=== PATIENT | male | born 1970 | race Caucasian/White ===

== ENCOUNTER 2022-04-10 06:03 | Inpatient (IN) | payer MEDICAID ==
[2022-04-10] VITALS (27 sets, daily range): BP systolic 77–186; BP diastolic 41–98
[~2022-04-10] VITALS: Ht 182.9 cm; Wt 118.8 kg
[2022-04-10] MEDS ORDERED: vancomycin/NS 1 GM ADD-VANTAGE 250 ML IV ONE (07:10)
[2022-04-10] MEDS ORDERED: piperacillin/tazo 3.375gm/50ml 50 ML IV ONE (07:10)
[2022-04-10] MEDS ORDERED: normal saline 1000ML IV soln IV ONE (07:10)
[2022-04-10 07:43] LABS: BASOPHILS # (AUTO) 0.1 X10'3 (0-0.2); BASOPHILS % (AUTO) 0.3 % (0-1); EOSINOPHILS % (AUTO) 0 % (0-6); HEMATOCRIT 27.2 % (42.0-52.0); HEMOGLOBIN 8.8 g/dl (14.0-17.9); LYMPHOCYTES % (AUTO) 4.6 % (21-51); MEAN CORPUSCULAR HEMOGLOBIN 27.9 PG (27.0-31.0); MEAN CORPUSCULAR HGB CONC 32.2 g/dL (33.0-36.5); MEAN CORPUSCULAR VOLUME 86.6 FL (78-98); MEAN PLATELET VOLUME 7.4 FL (7.4-10.4); MONOCYTES # (AUTO) 1.7 X10'3 (0-0.9); MONOCYTES % (AUTO) 7.9 % (2-12); NEUTROPHILS # (AUTO) 19.2 X10'3 (1.8-7.7); NEUTROPHILS % (AUTO) 87.2 % (42-75); PLATELET COUNT 566 X10'3 (140-440); RED BLOOD COUNT 3.14 X10'6 (4.70-6.10); RED CELL DISTRIBUTION WIDTH 18.1 % (11.5-14.5)
[2022-04-10 08:13] LABS: ALANINE AMINOTRANSFERASE 7 U/L (12-78); ALBUMIN 1.8 G/DL (3.4-5.0); ALBUMIN/GLOBULIN RATIO 0.3 (1.1-1.5); ALKALINE PHOSPHATASE 93 IU/L (46-116); ANION GAP 10 (8-16); ASPARTATE AMINO TRANSFERASE 13 U/L (10-37); BLOOD UREA NITROGEN 44 MG/DL (7-18); BUN/CREATININE RATIO 11.4 (5.4-32.0); CALCIUM 9.4 MG/DL (8.5-10.1); CHLORIDE 97 MMOL/L (99-107); CREATININE 3.85 MG/DL (0.60-1.10); GLUCOSE 175 MG/DL (70-104); MAGNESIUM 2.2 MG/DL (1.5-2.4); POTASSIUM 5.2 MMOL/L (3.5-5.1); SODIUM 133 MMOL/L (135-145); TOTAL CARBON DIOXIDE 26.1 MMOL/L (24-32); TOTAL PROTEIN 7.7 G/DL (6.4-8.2); eGFR 17 ML/MIN
--- NOTE | 2022-04-10 08:15 | NUR ---
Md informed of pt's continues low bp after 1L NS, second liter ordered. will carry out.
[2022-04-10] MEDS ORDERED: normal saline 1000ml 1,000 ML IV ONE (08:20)
[2022-04-10] MEDS ORDERED: ringers solution, lacted 1,000 ML IV ONE ×3 (08:35→21:55)
--- NOTE | 2022-04-10 08:37 | NUR ---
dr. farmer at bedside.
[2022-04-10] MEDS ORDERED: ringers solution, lacted 1,000 ML IV SCH ×2 (08:45→13:05)
[2022-04-10] MEDS ORDERED: normal saline 1000ml 1,000 ML IV SCH (09:40)
[2022-04-10] MEDS: normal saline 1000ml 1,000 ML IV ONE ×2 (10:01→10:30)
[2022-04-10] MEDS ORDERED: NORepinephrine inj. 32 MG in normal saline 250ml IV soln 218 ML IV SCH (10:25)
[2022-04-10] MEDS ORDERED: albumin (Human) 5% 250ml 250 ML IV ONE ×5 (11:00→12:49)
[2022-04-10] MEDS ORDERED: albumin (human) 25% 100 ML IV solution IV ONE ×2 (11:00)
--- NOTE | 2022-04-10 11:05 | NUR ---
environmental technical officer at bedside. verbal orders for two additional liters of NS for a total of 6L of fluid. also verbal order for 300ml of 25% albumin bolus and 5% albumin cont infusion of 75ml/hr. will carry out.
[2022-04-10] MEDS ORDERED: rocuronium 10mg/ml inj IV ONE ×4 (11:36→13:09)
[2022-04-10] MEDS ORDERED: sevoflurane 250ml liquid IH ONE (11:36)
[2022-04-10] MEDS ORDERED: NORepinephrine 8 MG in NS 250 ML BAG (32 mcg/ml) IV ONE (11:36)
--- NOTE | 2022-04-10 11:36 | NUR ---
telephone report to moose salcido. aware of pending fluid and albumin orders from supercalender operator.
[2022-04-10] MEDS ORDERED: ALBU17AE26 IH (11:37)
[2022-04-10] MEDS ORDERED: CARV12.549 PO (11:37)
[2022-04-10] MEDS ORDERED: DAPA10TA PO (11:37)
[2022-04-10] MEDS ORDERED: ASPI-1397 PO (11:37)
[2022-04-10] MEDS ORDERED: ATOR40TA72 PO (11:37)
[2022-04-10] MEDS ORDERED: LISI10TA27 PO (11:37)
[2022-04-10] MEDS ORDERED: SPIR25TA5 PO (11:37)
[2022-04-10] MEDS ORDERED: FURO40TA4 PO (11:37)
[2022-04-10] MEDS ORDERED: RIVA20TA PO (11:37)
[2022-04-10] MEDS ORDERED: LIDOcaine 1% (10mg/ml) 2ml vial ONE (11:40)
[2022-04-10] MEDS ORDERED: fentaNYL /PF 50mcg/ml 5ml ampule ONE (11:43)
[2022-04-10] MEDS ORDERED: albumin (human) 25% 100ml IV 100 ML IV ONE ×2 (12:35)
[2022-04-10] MEDS ORDERED: FENTANYL CITRATE/D5W/PF 100 ML IV PRN (13:05)
[2022-04-10] MEDS ORDERED: midazolam 100mg in NS 100ml 100 ML IV PRN (13:05)
[2022-04-10] MEDS ORDERED: fentaNYL/PF 50MCG/1 ML 2ML syringe IV PRN ×3 (13:05→13:55)
[2022-04-10] MEDS ORDERED: midazolam 1 mg/ML 2ml injection IV ONE (13:05)
[2022-04-10] MEDS ORDERED: ondansetron/PF 4mg/2ml inj IV PRN (13:05)
[2022-04-10] MEDS ORDERED: MIDAZolam 1mg/ml 10ml vial ONE (13:10)
[2022-04-10] MEDS ORDERED: etomidate 2mg/ml inj. ONE (13:10)
[2022-04-10] MEDS ORDERED: FENTANYL-0.9 % NACL/PF 100 ML IV PRN (13:35)
--- NOTE | 2022-04-10 13:44 | NUR ---
Received from OR via BED, accompanied by Anesthesiologist: DR PULIDO and report given by Anesthesiolgist. ON VENTILATER. TRIPLE LUMEN. ARTLINE. DRESSING MIDLINE ABD WITH COLOSTOMY L LATERAL. RESTRAINTS. F/C. PULSES PRESENT FACIA IS CLOSED YET SKIN IS OPEN, PACKED WITH ABD'S. Addendum: 04/10/22 at [address] RN PATIENT ALSO HAS POWER PIC IN LEFT UPPER ARM AND NG TUBE.
[2022-04-10] MEDS ORDERED: morphine 2 MG/ML inj. syringe IV PRN (13:55)
[2022-04-10] MEDS ORDERED: morphine 4 MG/ML inj SYRINge IV PRN (13:55)
[2022-04-10 14:28] LABS: ABG BASE EXCESS -3.1 mmol/L (-2.0-2.0); ABG HCO3 24.1 mmol/L (22.0-26.0); ABG OXYGEN SATURATION 94.1 % (94-97); ABG PCO2 (T) 54.4 mmHg (35.0-48.0); ABG PO2 (T) 83.4 mmHg (75.0-100.0); FCOHb 0.7 % (0.0-3.9); FMetHb 0.5 % (0.0-1.5); PATIENT TEMPERATURE 36.9; PEEP 5 cm H2O; RESPIRATORY RATE 14 b/min; TIDAL VOLUME 600 mL; TOTAL HEMOGLOBIN 8.6 G/dl (14.0-18.0)
--- NOTE | 2022-04-10 14:44 | NUR ---
PATIENT MEETS DISCHARGE CRITERIA. VSS. PATIENT VENTILATED. BED LOWERED AND LOCKED. REPORT GIVEN TO NURSE.
[2022-04-10] MEDS ORDERED: propofol 1000mg/100ml bottle 100 ML IV ONE (14:56)
--- NOTE | 2022-04-10 15:00 | NUR ---
Patient very hypertensive and tachycardic with heart rate in the 130s-140s and SBP in the 180s-190s. Per Dr. Moffett, give a 150 mcg bolus of Fentanyl and follow that up with a rate increase from 35 mcg/hr to 200 mcg/hr. He also stated he would like the Versed changed to Propofol and to start the rate of the Propofol at 25 mcg/kg/min. Dr. Moffett ordered for a continuous 5% Albumin to be hung at 75ml/hr and for it to not be stopped. He would also like for NS to run at 75 ml/hr. Lastly, he would like an echocardiogram to be ordered and performed. Orders to be followed.
--- NOTE | 2022-04-10 15:00 | NUR ---
Patient report received from REGINA Lay and REGINA Guaman.
[2022-04-10] MEDS: propofol 1000mg/100ml bottle 100 ML IV SCH ×3 (15:11→23:56)
[2022-04-10] MEDS: normal saline 1000ml 1,000 ML IV SCH (15:14)
[2022-04-10] MEDS: albumin (Human) 5% 250ml 250 ML IV SCH ×3 (15:25→20:44)
[2022-04-10] MEDS ORDERED: fentaNYL/NS/PF 2,500 mcg/250mL 250 ML IV PRN (17:45)
[2022-04-10] MEDS: piperacillin/tazo 3.375gm/50ml 50 ML IV SCH (17:46)
--- NOTE | 2022-04-10 19:32 | NUR ---
Sulfonator Operator Tele-Med ICU MD notified of PT's increasing temperature which is now 39.2. Cooling measures in place but not effective. Order received for IV Tylenol. Also made MD aware of PT's HR in low 120's and BP in 90's/40's and need to titrate Levo up. Order received to increase rate Of NS from 75 to 100ml/hr. Will continue to monitor.
[2022-04-10] MEDS: acetaminophen 1,000mg/100ml IV 100 ML IV PRN (19:46)
[2022-04-10] MEDS ORDERED: NORepinephrine 8mg/ 250ml NS 250 ML IV ONE (21:06)
[2022-04-10 21:51] LABS: EOSINOPHILS % (AUTO) 0.1 % (0-6); HEMOGLOBIN 8.3 g/dl (14.0-17.9); LYMPHOCYTES # (AUTO) 0.7 X10'3 (1.1-4.8); LYMPHOCYTES % (AUTO) 4.5 % (21-51); MEAN CORPUSCULAR VOLUME 87.5 FL (78-98)
[2022-04-10 21:52] LABS: BASOPHILS % (AUTO) 0.2 % (0-1); HEMATOCRIT 25.6 % (42.0-52.0); MEAN CORPUSCULAR HEMOGLOBIN 28.5 PG (27.0-31.0); MEAN CORPUSCULAR HGB CONC 32.5 g/dL (33.0-36.5); MEAN PLATELET VOLUME 7.6 FL (7.4-10.4); MONOCYTES # (AUTO) 0.9 X10'3 (0-0.9); MONOCYTES % (AUTO) 6.1 % (2-12); NEUTROPHILS # (AUTO) 13.8 X10'3 (1.8-7.7); NEUTROPHILS % (AUTO) 89.1 % (42-75); PLATELET COUNT 663 X10'3 (140-440); RED BLOOD COUNT 2.93 X10'6 (4.70-6.10); RED CELL DISTRIBUTION WIDTH 18.6 % (11.5-14.5); WHITE BLOOD COUNT 15.5 X10'3 (4.5-11.0)
[2022-04-10] MEDS ORDERED: vasopressin inj. 40 UNIT in dextrose 5%-water 50ml 38 ML IV SCH (21:55)
--- NOTE | 2022-04-10 21:56 | NUR ---
Service Station Manager Tele-Med ICU MD notified of PT's increasing pressor requirement and decreased urine output. Orders received to give 1L bolus of LR and to start Vasopressin if not effective. Order also received to use Flowtrack monitoring. While on the phone update provided in regards to PT's temp after administration of IV Tylenol. Current temp is 38.0. Will continue to monitor.
[2022-04-10 22:01] LABS: ALBUMIN 2.9 G/DL (3.4-5.0); ALBUMIN/GLOBULIN RATIO 0.9 (1.1-1.5); ALKALINE PHOSPHATASE 54 IU/L (46-116); ANION GAP 9 (8-16); ASPARTATE AMINO TRANSFERASE 8 U/L (10-37); BILIRUBIN,TOTAL 0.8 MG/DL (0.1-1.0); BLOOD UREA NITROGEN 47 MG/DL (7-18); BUN/CREATININE RATIO 19.2 (5.4-32.0); CALCIUM 8.3 MG/DL (8.5-10.1); CHLORIDE 102 MMOL/L (99-107); CREATININE 2.45 MG/DL (0.60-1.10); GLUCOSE 167 MG/DL (70-104); MAGNESIUM 2.1 MG/DL (1.5-2.4); POTASSIUM 4.7 MMOL/L (3.5-5.1); SODIUM 134 MMOL/L (135-145); TOTAL CARBON DIOXIDE 23.2 MMOL/L (24-32); TOTAL PROTEIN 6.2 G/DL (6.4-8.2); eGFR 28 ML/MIN
[2022-04-10 22:03] LABS: ALANINE AMINOTRANSFERASE < 6 U/L (12-78)
[2022-04-10] MEDS: NORepinephrine 8mg/ 250ml NS 250 ML IV PRN ×2 (22:11→23:56)
[2022-04-10 22:59] LABS: LARGE PLATELETS FEW; PLATELET ESTIMATE INCREASED
[2022-04-10 23:03] LABS: ANISOCYTOSIS 2+
[2022-04-11] VITALS (29 sets, daily range): BP systolic 16–153; BP diastolic 45–63
--- NOTE | 2022-04-11 | NUR ---
Tele-Med ICU MD was called and given an update on PT condition. BP improved after fluid bolus. Nursing expressed concern about ABD size and order received for ABD pressure monitoring. Will continue to monitor.
[2022-04-11] MEDS: piperacillin/tazo 3.375gm/50ml 50 ML IV SCH ×3 (00:52→17:07)
[2022-04-11] MEDS: albumin (Human) 5% 250ml 250 ML IV SCH ×7 (00:52→21:16)
[2022-04-11] MEDS: normal saline 1000ml 1,000 ML IV SCH ×2 (02:03→12:29)
[2022-04-11 03:40] LABS: BASOPHILS % (AUTO) 0.2 % (0-1); EOSINOPHILS % (AUTO) 0.2 % (0-6); HEMATOCRIT 24.7 % (42.0-52.0); HEMOGLOBIN 8.1 g/dl (14.0-17.9); LYMPHOCYTES # (AUTO) 0.7 X10'3 (1.1-4.8); LYMPHOCYTES % (AUTO) 4.7 % (21-51); MEAN CORPUSCULAR HEMOGLOBIN 28.6 PG (27.0-31.0); MEAN CORPUSCULAR HGB CONC 32.8 g/dL (33.0-36.5); MEAN CORPUSCULAR VOLUME 87.3 FL (78-98); MEAN PLATELET VOLUME 7.4 FL (7.4-10.4); MONOCYTES % (AUTO) 6.8 % (2-12); NEUTROPHILS # (AUTO) 13.4 X10'3 (1.8-7.7); NEUTROPHILS % (AUTO) 88.1 % (42-75); PLATELET COUNT 579 X10'3 (140-440); RED BLOOD COUNT 2.83 X10'6 (4.70-6.10); RED CELL DISTRIBUTION WIDTH 18.2 % (11.5-14.5); WHITE BLOOD COUNT 15.2 X10'3 (4.5-11.0)
[2022-04-11 03:56] LABS: APTT 43 SECONDS (22-32); D-DIMER 7.37 MG/L FEU (0-0.50)
[2022-04-11 04:00] LABS: ALBUMIN 2.7 G/DL (3.4-5.0); ALBUMIN/GLOBULIN RATIO 0.8 (1.1-1.5); ALKALINE PHOSPHATASE 53 IU/L (46-116); ANION GAP 9 (8-16); ASPARTATE AMINO TRANSFERASE 8 U/L (10-37); BILIRUBIN,TOTAL 0.8 MG/DL (0.1-1.0); BLOOD UREA NITROGEN 45 MG/DL (7-18); BUN/CREATININE RATIO 22.2 (5.4-32.0); CALCIUM 8.4 MG/DL (8.5-10.1); CHLORIDE 104 MMOL/L (99-107); CREATININE 2.03 MG/DL (0.60-1.10); GLUCOSE 155 MG/DL (70-104); POTASSIUM 4.9 MMOL/L (3.5-5.1); SODIUM 135 MMOL/L (135-145); TOTAL CARBON DIOXIDE 21.9 MMOL/L (24-32); TRIGLYCERIDES 143 MG/DL (20-135); eGFR 35 ML/MIN
[2022-04-11 04:05] LABS: ALANINE AMINOTRANSFERASE < 6 U/L (12-78)
[2022-04-11 04:09] LABS: ABG BASE EXCESS -3.2 mmol/L (-2.0-2.0); ABG HCO3 21.3 mmol/L (22.0-26.0); ABG OXYGEN SATURATION 98.7 % (94-97); ABG PCO2 (T) 36.4 mmHg (35.0-48.0); FCOHb 0.3 % (0.0-3.9); FMetHb 0.3 % (0.0-1.5); FO2Hb 98.1 % (94-97); PATIENT TEMPERATURE 37.4; PEEP 5 cm H2O; RESPIRATORY RATE 18 b/min; TIDAL VOLUME 600 mL
[2022-04-11] MEDS: NORepinephrine 8mg/ 250ml NS 250 ML IV PRN (04:48)
[2022-04-11] MEDS: propofol 1000mg/100ml bottle 100 ML IV SCH ×2 (04:49→06:48)
--- NOTE | 2022-04-11 06:38 | NUR ---
Problems reprioritized. Patient report given, questions answered & plan of care reviewed with Kranthi TAPIA.
[2022-04-11] MEDS ORDERED: VANCOMYCIN 750MG IV in NS 250 ML IV SCH (08:00)
[2022-04-11] MEDS: pantoprazole 40MG/NS 100ML BAG 100 ML IV SCH (08:57)
--- NOTE | 2022-04-11 11:06 | NUR ---
Initial: Pt intubated admit DX sepsis and perforated sigmoid colon s/p OR for sigmoid resection w/ end descending colostomy per EMR. Pt remains NPO w/ NG in place to suction previously on Propofol though now held during rounds. Pending possible extubation in near future if able per MD. No colostomy output yet noted in EMR. Will monitor for nutrition intervention needs on vent post-op. Rec: 1. IF pt remains intubated post-op consider trickle EN per MD discretion 2. IF pt to remain prolonged NPO vs restrictive diet 7-10 days post-op; consider PN to meet nutrition needs 3. bowel care per MD 4. upon extubation; advance diet as medically indicated to low-residue 5. Colostomy diet ed once pt more appropriate following extubation prior to discharge Addendum: 04/11/22 at [address] Amended: Links added.
[2022-04-11] MEDS: acetaminophen 1,000mg/100ml IV 100 ML IV PRN (11:14)
--- NOTE | 2022-04-11 11:48 | NUR ---
Arrived in room and pt is intubated and sedated. Large abdominal surgical wound intact. Nursing to manage surgical wound. Colostomy to LQ w/ red stoma that measures approx. 38mm through the bag there is serousang drainage noted in the drainage bag. Will return when pt is awake to start ostomy education. Addendum: 04/11/22 at 1149 by Alma Hawkins RN Amended: Links added.
[2022-04-11] MEDS ORDERED: ipratropium/albuterol 3ml nebule NEB PRN (13:55)
[2022-04-11] MEDS ORDERED: naloxone 0.4 mg/ml inj IV PRN (13:55)
[2022-04-11] MEDS ORDERED: mineral oil/petrolatum ophthal oint EACHEYE SCH (14:00)
[2022-04-11] MEDS ORDERED: CADD PCA waste documentation MC SCH (14:05)
[2022-04-11] MEDS: HYDROmorph/NS 0.2 mg/ml PCA 100 ML IV SCH ×4 (14:45→23:00)
[2022-04-11] MEDS: ipratropium/albuterol 3ml nebule NEB SCH ×3 (15:31→23:00)
--- NOTE | 2022-04-11 16:16 | NUR ---
Received from OR via SURGICAL BED , accompanied by Anesthesiologist TESS and report given by Anesthesiolgist. PATIENT WITH 20G PIV IN LEFT HAND RUNNING LR AT 100 LEFT HIP DRESSINGS X2 WITH OP SITES PRESENT AND + DP TO LEFT FOOT. MARKED. PATIENT WITH 10L MASK ON WITH 100% SATURATIONS. SCDS DONNED BILATERALLY. Addendum: 04/11/22 at 1627 by Alireza Mari RN, RN Amended: Links added.
[2022-04-11] MEDS ORDERED: CARV6.253 PO (17:28)
[2022-04-11] MEDS ORDERED: LIDO700A32 TOP (17:28)
[2022-04-11] MEDS ORDERED: OXYC20TA55 PO (17:28)
[2022-04-11] MEDS ORDERED: VANC1PLA9 IV (17:28)
[2022-04-11] MEDS ORDERED: FAMO20TA8 PO (17:28)
[2022-04-11] MEDS ORDERED: OXYC10TA57 PO (17:28)
[2022-04-11] MEDS ORDERED: OXYC-150 PO (17:28)
--- NOTE | 2022-04-11 18:00 | NUR ---
Received report from AM RN. Pts extubated during AM shift. On OPERATIONS CONSULTANT pump. No acute resp distress noted. Safety measures in place. Will continue to monitor.
[2022-04-11] MEDS ORDERED: MYC15CR TP (18:24)
[2022-04-11] MEDS ORDERED: DOCU100C40 PO (18:24)
[2022-04-11] MEDS ORDERED: SIME80TA15 PO (18:24)
[2022-04-11] MEDS ORDERED: FLO0.4C PO (18:24)
[2022-04-11] MEDS ORDERED: SENN1TAB82 PO (18:24)
[2022-04-11] MEDS: vancomycin/NS 1 GM ADD-VANTAGE 250 ML IV SCH (19:58)
[2022-04-11] MEDS ORDERED: HYDROmorphone/PF 0.2 MG/ML SYRINGE IV PRN (20:15)
[2022-04-11] MEDS ORDERED: acetaminophen 1,000mg/100ml IV 100 ML IV ONE (20:15)
--- NOTE | 2022-04-11 21:12 | NUR ---
Pt in pain. Moaning and grunting. Pt states abd pain 08/25. Educated on how to use FACILITIES LOCATOR pump. Order to for breaking through pain control. Breakthrough pain managed. pt resting comfortably.
[2022-04-12] VITALS (38 sets, daily range): BP systolic 121–175; BP diastolic 61–93
[2022-04-12] MEDS: albumin (Human) 5% 250ml 250 ML IV SCH ×10 (00:12→23:33)
[2022-04-12] MEDS: piperacillin/tazo 3.375gm/50ml 50 ML IV SCH ×4 (00:41→23:39)
[2022-04-12] MEDS: HYDROmorph/NS 0.2 mg/ml PCA 100 ML IV SCH ×12 (01:00→23:00)
[2022-04-12] MEDS: normal saline 1000ml 1,000 ML IV SCH (01:14)
[2022-04-12] MEDS: HYDROmorphone inj. 0.5 MG/0.5 ML DISP.SYRIN IV PRN ×5 (03:08→23:42)
[2022-04-12 03:10] LABS: BASOPHILS % (AUTO) 0.2 % (0-1); EOSINOPHILS # (AUTO) 0.1 X10'3 (0-0.9); EOSINOPHILS % (AUTO) 0.5 % (0-6); HEMATOCRIT 22.4 % (42.0-52.0); HEMOGLOBIN 7.2 g/dl (14.0-17.9); LYMPHOCYTES # (AUTO) 0.7 X10'3 (1.1-4.8); LYMPHOCYTES % (AUTO) 4.7 % (21-51); MEAN CORPUSCULAR HEMOGLOBIN 27.9 PG (27.0-31.0); MEAN CORPUSCULAR VOLUME 87.2 FL (78-98); MEAN PLATELET VOLUME 7.5 FL (7.4-10.4); MONOCYTES # (AUTO) 1.3 X10'3 (0-0.9); MONOCYTES % (AUTO) 9.1 % (2-12); NEUTROPHILS # (AUTO) 12.4 X10'3 (1.8-7.7); NEUTROPHILS % (AUTO) 85.5 % (42-75); PLATELET COUNT 389 X10'3 (140-440); RED BLOOD COUNT 2.57 X10'6 (4.70-6.10); RED CELL DISTRIBUTION WIDTH 18.7 % (11.5-14.5); WHITE BLOOD COUNT 14.5 X10'3 (4.5-11.0)
[2022-04-12 03:13] LABS: ALBUMIN 2.9 G/DL (3.4-5.0); ALBUMIN/GLOBULIN RATIO 0.9 (1.1-1.5); ALKALINE PHOSPHATASE 56 IU/L (46-116); ANION GAP 8 (8-16); ASPARTATE AMINO TRANSFERASE 20 U/L (10-37); BILIRUBIN,TOTAL 0.5 MG/DL (0.1-1.0); BLOOD UREA NITROGEN 44 MG/DL (7-18); BUN/CREATININE RATIO 32.6 (5.4-32.0); CALCIUM 8.6 MG/DL (8.5-10.1); CHLORIDE 108 MMOL/L (99-107); CREATININE 1.35 MG/DL (0.60-1.10); GLUCOSE 119 MG/DL (70-104); MAGNESIUM 2.1 MG/DL (1.5-2.4); PHOSPHORUS 3.7 MG/DL (2.3-4.5); POTASSIUM 4.8 MMOL/L (3.5-5.1); SODIUM 139 MMOL/L (135-145); TOTAL CARBON DIOXIDE 23.3 MMOL/L (24-32); TOTAL PROTEIN 6.3 G/DL (6.4-8.2); eGFR 56 ML/MIN
[2022-04-12 03:15] LABS: ALANINE AMINOTRANSFERASE < 6 U/L (12-78)
[2022-04-12 03:59] LABS: ANISOCYTOSIS 2+; PLATELET ESTIMATE NORMAL
[2022-04-12] MEDS ORDERED: furosemide 20 MG/2 ML vial IV ONE (04:40)
[2022-04-12] MEDS ORDERED: LIDOcaine 2% 10ml TOPICAL JELLY (Urojet) MM ONE (05:15)
--- NOTE | 2022-04-12 06:43 | NUR ---
Patient in room CICU 2007. I have received report from Katia and had the opportunity to ask questions and assume patient care.
[2022-04-12] MEDS: vancomycin/NS 1 GM ADD-VANTAGE 250 ML IV SCH ×2 (07:39→19:19)
[2022-04-12] MEDS: pantoprazole 40MG/NS 100ML BAG 100 ML IV SCH (07:39)
[2022-04-12] MEDS: ipratropium/albuterol 3ml nebule NEB SCH ×5 (07:53→22:09)
--- NOTE | 2022-04-12 13:00 | NUR ---
Dr Leiva at bedside. Abdominal Dressing removed. Wound bed 80% pink and 20% yellow. Wound care done with wet to dry 4x4s. Dry 4x4 placed of packed wet 4x4s. An abdominal dressing placed over dressing and taped. Patient pushed KITCHEN BATH DESIGNER pump before starting wound care. Post wound care pain still present. 0.2mg bolus of diluadid given. Wound care needs to be complete BID.
--- NOTE | 2022-04-12 18:14 | NUR ---
Blood pressure 148/90 on Left arm. Mean 106. NOC RN does not feel comfortable with patient getting both medications and would like to clarify it with the MD.
--- NOTE | 2022-04-12 18:17 | NUR ---
Problems reprioritized. Patient report given, questions answered & plan of care reviewed with Katia.
[2022-04-12] MEDS: hydrALAZINE 20mg/ml inj. IV SCH (18:48)
[2022-04-12] MEDS: metoprolol tartrate 1mg/ml inj IV SCH (18:48)
--- NOTE | 2022-04-12 18:48 | NUR ---
Leanne at bed side. Clarified order to give both hydralazine and metropolol. pts heart rate in the 120s. Discrepancy between Art line and manual. Manual 170 SBP. Manual 140SBP
--- NOTE | 2022-04-12 19:14 | NUR ---
Call to Dr Hernandez. Made aware that pt have meaning, grunting and groaning since I arrived on the floor. Pt is active in using VEGETABLE CUTTER without mgmt of pain. Order to give Dilaudid (see MAR) for break through pain. Addendum: 04/12/22 at 192 by Jayne Bardales - Fran RN Arterial line BP still elevated in the 160-170s SBP s/p admin of antiHTN (see MAR). HR 120-130s. Respirations 30s.
--- NOTE | 2022-04-12 19:40 | NUR ---
Call to Dr. Hernandez. Bladder temps in the 38s deg C. Currently 38.4 deg C. Order to give IV acetaminophen (Q6hr)
[2022-04-12] MEDS ORDERED: acetaminophen 1,000mg/100ml IV 100 ML IV PRN (19:45)
[2022-04-12 22:20] LABS: CLARITY,URINE CLOUDY (Clear); COLOR,URINE YELLOW (Yellow); GLUCOSE, URINE NEGATIVE (Neg); KETONES,URINE NEGATIVE (Neg); LEUKOCYTE ESTERASE ,URINE NEGATIVE (Neg); NITRITES, URINE NEGATIVE (Neg); OCCULT BLOOD,URINE SMALL (Neg); PH,URINE 5.5 (4.8-8.0); PROTEIN,URINE TRACE mg/dl (Neg); UROBILINOGEN,URINE 0.2 E.U/dL (0.2-1.0)
[2022-04-12 23:00] LABS: BACTERIA,URINE NONE SEEN /HPF (Neg); MUCUS STRANDS NONE SEEN /LPF (Neg); RBC,URINE 0-2 /HPF (0-2); SQUAMOUS EPITHELIAL CELL,UR NONE SEEN /LPF (FEW); UA COLLECTION TYPE NON-SPECIFIED; URIC ACID CRYSTALS 3+ /HPF (NEGATIVE); WBC,URINE 0-4 /HPF (0-4)
[2022-04-13] VITALS (39 sets, daily range): BP systolic 114–175; BP diastolic 65–101
--- NOTE | 2022-04-13 00:20 | NUR ---
Call to Dr. Hernandez expressed concern about Pts HR being in the 110-120s and wanted to clarify midnight dose of hydralazine. Stated pt HR elevated near to 130s with earlier dose of hydralazine without resolve of hypertension. Hypertension resolved once pain was managed. Pain managed as evidence by pt moaning, groaning and grunting less. Pt able to hold small conversation vs complete withdraw within. Respirations near normal limits (see MAR for vital sign spread). Asked pt to rate his pain on a scale of 0-10, pt states, Im feeling better. Pt able to rest. Art line vs manual cuff within 20mmHg difference at this time. Okay to hold hydralazine. Proceed with admin of metoprolol per order.
[2022-04-13] MEDS: HYDROmorph/NS 0.2 mg/ml PCA 100 ML IV SCH ×12 (01:00→23:00)
[2022-04-13] MEDS: metoprolol tartrate 1mg/ml inj IV SCH ×2 (02:17→07:41)
[2022-04-13] MEDS: HYDROmorphone inj. 0.5 MG/0.5 ML DISP.SYRIN IV PRN ×3 (02:27→05:27)
[2022-04-13] MEDS: albumin (Human) 5% 250ml 250 ML IV SCH ×8 (02:46→22:40)
[2022-04-13 03:17] LABS: BASOPHILS % (AUTO) 0.3 % (0-1); EOSINOPHILS # (AUTO) 0.2 X10'3 (0-0.9); LYMPHOCYTES # (AUTO) 0.7 X10'3 (1.1-4.8); LYMPHOCYTES % (AUTO) 4.6 % (21-51); MEAN CORPUSCULAR HEMOGLOBIN 27.5 PG (27.0-31.0); MEAN CORPUSCULAR HGB CONC 31.8 g/dL (33.0-36.5); MEAN CORPUSCULAR VOLUME 86.6 FL (78-98); MEAN PLATELET VOLUME 7.7 FL (7.4-10.4); MONOCYTES # (AUTO) 1.8 X10'3 (0-0.9); MONOCYTES % (AUTO) 11.3 % (2-12); NEUTROPHILS # (AUTO) 13.5 X10'3 (1.8-7.7); NEUTROPHILS % (AUTO) 82.8 % (42-75); PLATELET COUNT 418 X10'3 (140-440); RED BLOOD COUNT 2.51 X10'6 (4.70-6.10); WHITE BLOOD COUNT 16.3 X10'3 (4.5-11.0)
[2022-04-13 03:24] LABS: HEMOGLOBIN 6.9 g/dl (14.0-17.9)
[2022-04-13 03:25] LABS: HEMATOCRIT 21.8 % (42.0-52.0)
[2022-04-13 03:28] LABS: ALANINE AMINOTRANSFERASE 8 U/L (12-78); ALBUMIN/GLOBULIN RATIO 0.9 (1.1-1.5); ALKALINE PHOSPHATASE 85 IU/L (46-116); ANION GAP 7 (8-16); ASPARTATE AMINO TRANSFERASE 20 U/L (10-37); BILIRUBIN,TOTAL 0.6 MG/DL (0.1-1.0); BLOOD UREA NITROGEN 38 MG/DL (7-18); BUN/CREATININE RATIO 34.9 (5.4-32.0); CALCIUM 8.5 MG/DL (8.5-10.1); CHLORIDE 112 MMOL/L (99-107); CREATININE 1.09 MG/DL (0.60-1.10); GLUCOSE 97 MG/DL (70-104); MAGNESIUM 1.9 MG/DL (1.5-2.4); PHOSPHORUS 3.3 MG/DL (2.3-4.5); POTASSIUM 4.1 MMOL/L (3.5-5.1); SODIUM 144 MMOL/L (135-145); TOTAL CARBON DIOXIDE 25.5 MMOL/L (24-32); TOTAL PROTEIN 6.4 G/DL (6.4-8.2); eGFR 72 ML/MIN
[2022-04-13] MEDS: hydrALAZINE 20mg/ml inj. IV SCH ×6 (04:07→19:45)
[2022-04-13 04:24] LABS: PLATELET ESTIMATE NORMAL
[2022-04-13 04:25] LABS: ANISOCYTOSIS 2+
[2022-04-13] MEDS: normal saline 1000ml 1,000 ML IV SCH ×2 (04:29→22:41)
--- NOTE | 2022-04-13 04:30 | NUR ---
Morning rounding with Dr Avitia Critical H/H reported. Order to transfuse 1 unit of PRBCs.
[2022-04-13] MEDS ORDERED: VANCOMYCIN LEVEL IV ONE (07:30)
[2022-04-13] MEDS: pantoprazole 40MG/NS 100ML BAG 100 ML IV SCH (07:42)
[2022-04-13] MEDS: ipratropium/albuterol 3ml nebule NEB SCH ×5 (08:07→22:08)
[2022-04-13] MEDS: vancomycin/NS 1 GM ADD-VANTAGE 250 ML IV SCH ×2 (08:21→19:45)
[2022-04-13] MEDS ORDERED: HYDROmorphone 1 mg/ml syringe IM ONE (09:25)
--- NOTE | 2022-04-13 09:27 | NUR ---
Blood transfusion complete. RN called Fabian Anderson FREIGHT BROKER re. pt's uncontrolled HTN and pain. Orders received.
[2022-04-13] MEDS: labetalol 20mg/4ml (5mg/ml) syringe IV SCH ×4 (09:33→19:45)
[2022-04-13] MEDS: piperacillin/tazo 3.375gm/50ml 50 ML IV SCH ×2 (09:33→15:36)
[2022-04-13] MEDS ORDERED: HYDROmorphone 1 mg/ml syringe IV ONE (09:35)
--- NOTE | 2022-04-13 12:24 | NUR ---
Dr. Leiva in to see pt. Aware of formed stool in colostomy but no gas.
--- NOTE | 2022-04-13 14:35 | NUR ---
Colostomy bag changed due to large amount of formed stool present. Gas present in colostomy as well.
--- NOTE | 2022-04-13 18:03 | NUR ---
Problems reprioritized. Patient report given, questions answered & plan of care reviewed with NOC RN Jacy.
--- NOTE | 2022-04-13 18:32 | NUR ---
Patient in room CICU 2007. I have received report from Ora TAPIA and had the opportunity to ask questions and assume patient care.
--- NOTE | 2022-04-13 22:25 | NUR ---
Dr Hernandez Called and notified of low urine output for my, orders given to give 20mg of lasix iv
[2022-04-13] MEDS ORDERED: furosemide 20 MG/2 ML vial IV ONE (22:30)
[2022-04-13] MEDS ORDERED: LIDOcaine 2% 10ml TOPICAL JELLY (Urojet) MM ONE (23:10)
--- NOTE | 2022-04-13 23:57 | NUR ---
Patients blunt occluded and was not able to flush, Dr jesus called and notified received orders to replace blunt. patient tolerated well
[2022-04-14] VITALS (18 sets, daily range): BP systolic 148–175; BP diastolic 70–108
[2022-04-14] MEDS: HYDROmorph/NS 0.2 mg/ml PCA 100 ML IV SCH ×12 (01:00→23:00)
[2022-04-14] MEDS: labetalol 20mg/4ml (5mg/ml) syringe IV SCH ×4 (01:10→12:29)
[2022-04-14] MEDS: piperacillin/tazo 3.375gm/50ml 50 ML IV SCH ×3 (01:10→16:22)
[2022-04-14] MEDS: hydrALAZINE 20mg/ml inj. IV SCH ×6 (01:11→20:21)
[2022-04-14] MEDS: albumin (Human) 5% 250ml 250 ML IV SCH (02:06)
[2022-04-14 03:02] LABS: BASOPHILS % (AUTO) 0.2 % (0-1); EOSINOPHILS # (AUTO) 0.2 X10'3 (0-0.9); EOSINOPHILS % (AUTO) 1.5 % (0-6); HEMATOCRIT 23.3 % (42.0-52.0); HEMOGLOBIN 7.6 g/dl (14.0-17.9); LYMPHOCYTES # (AUTO) 0.7 X10'3 (1.1-4.8); LYMPHOCYTES % (AUTO) 5.1 % (21-51); MEAN CORPUSCULAR HEMOGLOBIN 28.1 PG (27.0-31.0); MEAN CORPUSCULAR HGB CONC 32.8 g/dL (33.0-36.5); MEAN CORPUSCULAR VOLUME 85.7 FL (78-98); MEAN PLATELET VOLUME 7.7 FL (7.4-10.4); MONOCYTES # (AUTO) 1.9 X10'3 (0-0.9); MONOCYTES % (AUTO) 13.2 % (2-12); NEUTROPHILS # (AUTO) 11.2 X10'3 (1.8-7.7); PLATELET COUNT 463 X10'3 (140-440); RED BLOOD COUNT 2.71 X10'6 (4.70-6.10); RED CELL DISTRIBUTION WIDTH 18.8 % (11.5-14.5)
[2022-04-14 03:19] LABS: ALANINE AMINOTRANSFERASE 8 U/L (12-78); ALBUMIN 3.2 G/DL (3.4-5.0); ALBUMIN/GLOBULIN RATIO 0.9 (1.1-1.5); ALKALINE PHOSPHATASE 61 IU/L (46-116); ANION GAP 10 (8-16); ASPARTATE AMINO TRANSFERASE 19 U/L (10-37); BILIRUBIN,TOTAL 0.9 MG/DL (0.1-1.0); BLOOD UREA NITROGEN 31 MG/DL (7-18); BUN/CREATININE RATIO 35.2 (5.4-32.0); CALCIUM 8.8 MG/DL (8.5-10.1); CHLORIDE 112 MMOL/L (99-107); CREATININE 0.88 MG/DL (0.60-1.10); GLUCOSE 107 MG/DL (70-104); MAGNESIUM 1.8 MG/DL (1.5-2.4); PHOSPHORUS 3.2 MG/DL (2.3-4.5); POTASSIUM 3.7 MMOL/L (3.5-5.1); SODIUM 145 MMOL/L (135-145); TOTAL CARBON DIOXIDE 22.9 MMOL/L (24-32); TOTAL PROTEIN 6.6 G/DL (6.4-8.2); eGFR > 90 ML/MIN
[2022-04-14 04:45] LABS: PLATELET ESTIMATE INCREASED
[2022-04-14 04:47] LABS: ANISOCYTOSIS 2+
--- NOTE | 2022-04-14 04:59 | NUR ---
Dr Thornton rounding on patient, patient condition reviewed and orders received
[2022-04-14] MEDS: ringers solution, lacted 1,000 ML IV SCH ×4 (05:10→16:10)
--- NOTE | 2022-04-14 06:25 | NUR ---
Problems reprioritized. Patient report given to Ora TAPIA, questions answered & plan of care reviewed with .
[2022-04-14] MEDS: ipratropium/albuterol 3ml nebule NEB SCH ×5 (07:36→22:24)
[2022-04-14] MEDS: pantoprazole 40MG/NS 100ML BAG 100 ML IV SCH (08:03)
[2022-04-14] MEDS: vancomycin/NS 1 GM ADD-VANTAGE 250 ML IV SCH ×2 (08:11→20:15)
[2022-04-14] MEDS: cloNIDine 0.1 MG/24 HOUR patch (7 day patch) TD SCH (10:49)
--- NOTE | 2022-04-14 11:03 | NUR ---
Dr. Steven notified of HTN. New order for Clonidine patch received. ART line leaking. Dc'd.
--- NOTE | 2022-04-14 11:10 | NUR ---
Reassessment: Pt extubated post-op remains NPO now stooling w/ gas from colostomy per RN at rounds. R NG remains in place -400ml past two consecutive days per EMR. ELIZABETH d/w RN regarding diet advancement if MD agreeable; pending surgeon rounds today per RN. Will monitor for PO diet advancement/tolerance and further nutrition intervention needs. Rec: 1. advance diet as medically indicated to low-residue 2. bowel care per MD 3. daily wts 4. Colostomy diet ed once pt more appropriate post-op prior to discharge Addendum: 04/14/22 at [address] Amended: Links added.
[2022-04-14] MEDS: metoprolol tartrate 50mg tablet PO SCH ×2 (14:34→20:21)
--- NOTE | 2022-04-14 15:13 | NUR ---
Pt. transferred to 4007 via bed in stable condition with belongings, chart and med after giving phone report to RN. Pt. transferred to ortho bed from ICu bed using 4 staff and a slideboard.
--- NOTE | 2022-04-14 15:52 | NUR ---
Patient in room ORTHO 4007. I have received report from cheo virk and had the opportunity to ask questions and assume patient care.
--- NOTE | 2022-04-14 18:33 | NUR ---
Problems reprioritized. Patient report given, questions answered & plan of care reviewed with harika virk.
[2022-04-14] MEDS ORDERED: metoprolol tartrate 50mg tablet PO SCH (20:00)
[2022-04-15] MEDS: piperacillin/tazo 3.375gm/50ml 50 ML IV SCH ×3 (00:02→16:31)
[2022-04-15] MEDS: hydrALAZINE 20mg/ml inj. IV SCH ×6 (00:02→19:17)
[2022-04-15] MEDS: HYDROmorph/NS 0.2 mg/ml PCA 100 ML IV SCH ×4 (01:00→07:00)
[2022-04-15 06:00] VITALS: BP 147/107
[2022-04-15 06:14] LABS: BASOPHILS % (AUTO) 0.4 % (0-1); EOSINOPHILS # (AUTO) 0.2 X10'3 (0-0.9); EOSINOPHILS % (AUTO) 1.8 % (0-6); HEMATOCRIT 26.3 % (42.0-52.0); HEMOGLOBIN 8.6 g/dl (14.0-17.9); LYMPHOCYTES # (AUTO) 1.1 X10'3 (1.1-4.8); LYMPHOCYTES % (AUTO) 8.8 % (21-51); MEAN CORPUSCULAR HGB CONC 32.8 g/dL (33.0-36.5); MEAN CORPUSCULAR VOLUME 85.4 FL (78-98); MEAN PLATELET VOLUME 7.8 FL (7.4-10.4); MONOCYTES # (AUTO) 2.2 X10'3 (0-0.9); MONOCYTES % (AUTO) 18.2 % (2-12); NEUTROPHILS # (AUTO) 8.6 X10'3 (1.8-7.7); NEUTROPHILS % (AUTO) 70.8 % (42-75); PLATELET COUNT 529 X10'3 (140-440); RED BLOOD COUNT 3.08 X10'6 (4.70-6.10); RED CELL DISTRIBUTION WIDTH 19.2 % (11.5-14.5); WHITE BLOOD COUNT 12.1 X10'3 (4.5-11.0)
[2022-04-15 06:33] LABS: ALANINE AMINOTRANSFERASE 10 U/L (12-78); ALBUMIN 2.8 G/DL (3.4-5.0); ALBUMIN/GLOBULIN RATIO 0.7 (1.1-1.5); ALKALINE PHOSPHATASE 67 IU/L (46-116); ANION GAP 9 (8-16); ASPARTATE AMINO TRANSFERASE 22 U/L (10-37); BILIRUBIN,TOTAL 0.7 MG/DL (0.1-1.0); BLOOD UREA NITROGEN 26 MG/DL (7-18); BUN/CREATININE RATIO 29.2 (5.4-32.0); CALCIUM 8.6 MG/DL (8.5-10.1); CHLORIDE 112 MMOL/L (99-107); CREATININE 0.89 MG/DL (0.60-1.10); GLUCOSE 117 MG/DL (70-104); MAGNESIUM 1.7 MG/DL (1.5-2.4); PHOSPHORUS 2.7 MG/DL (2.3-4.5); POTASSIUM 3.5 MMOL/L (3.5-5.1); SODIUM 145 MMOL/L (135-145); TOTAL CARBON DIOXIDE 23.6 MMOL/L (24-32); TOTAL PROTEIN 6.7 G/DL (6.4-8.2); eGFR 90 ML/MIN
--- NOTE | 2022-04-15 06:45 | NUR ---
Patient in room ORTHO 4007. I have received report from REGINA Domínguez and had the opportunity to ask questions and assume patient care.
--- NOTE | 2022-04-15 06:46 | NUR ---
Problems reprioritized. Patient report given, questions answered & plan of care reviewed with moose Angel.
[2022-04-15] MEDS: ipratropium/albuterol 3ml nebule NEB SCH ×5 (07:44→23:00)
[2022-04-15] MEDS: pantoprazole 40MG/NS 100ML BAG 100 ML IV SCH (07:58)
[2022-04-15 08:21] LABS: ANISOCYTOSIS 2+; PLATELET ESTIMATE INCREASED; TOTAL CELLS COUNTED 100
[2022-04-15] MEDS ORDERED: HYDROcodone/acetaminophen 5mg/325mg tablet PO PRN (08:30)
[2022-04-15] MEDS: metoprolol tartrate 50mg tablet PO SCH ×2 (08:39→19:15)
[2022-04-15] MEDS: vancomycin/NS 1 GM ADD-VANTAGE 250 ML IV SCH ×2 (08:39→19:13)
[2022-04-15 10:00] VITALS: BP 154/96
[2022-04-15] MEDS: HYDROcodone/acetaminophen 5mg/325mg tablet PO PRN ×3 (10:31→21:44)
[2022-04-15] MEDS: HYDROmorphone inj. 0.5 MG/0.5 ML DISP.SYRIN IV PRN ×2 (13:19→19:12)
[2022-04-15 18:00] VITALS: BP 160/89
--- NOTE | 2022-04-15 18:37 | NUR ---
Patient in room ORTHO 4007. I have received report from REGINA Angel and had the opportunity to ask questions and assume patient care.
--- NOTE | 2022-04-15 18:48 | NUR ---
Problems reprioritized. Patient report given, questions answered & plan of care reviewed with REGINA Farris.
[2022-04-15] MEDS: enoxaparin 40mg/0.4ml syringe SUBCUT SCH (19:16)
[2022-04-15 22:00] VITALS: BP 161/91
[2022-04-15 23:30] VITALS: BP 151/78
[2022-04-16] MEDS: piperacillin/tazo 3.375gm/50ml 50 ML IV SCH ×4 (00:07→23:58)
[2022-04-16] MEDS: hydrALAZINE 20mg/ml inj. IV SCH ×3 (00:07→08:09)
[2022-04-16] MEDS: HYDROmorphone inj. 0.5 MG/0.5 ML DISP.SYRIN IV PRN (00:14)
[2022-04-16 02:00] VITALS: BP 139/89
[2022-04-16] MEDS: HYDROcodone/acetaminophen 5mg/325mg tablet PO PRN ×2 (02:52→08:08)
[2022-04-16 06:00] VITALS: BP 143/100
--- NOTE | 2022-04-16 06:31 | NUR ---
Problems reprioritized. Patient report given, questions answered & plan of care reviewed with REGINA Angel.
--- NOTE | 2022-04-16 06:39 | NUR ---
Patient in room ORTHO 4007. I have received report from REGINA Farris and had the opportunity to ask questions and assume patient care.
[2022-04-16] MEDS: ipratropium/albuterol 3ml nebule NEB SCH ×5 (07:31→23:30)
--- NOTE | 2022-04-16 07:44 | NUR ---
Malnutrition consult: Pt has been NPO/Clears for 6 days now s/p ex lap and colostomy, not meeting needs on clear liquid diet. Pt also documented w/ BLE 2+ scrotal 2+ edema and mild muscle weakness. Pt meets minimum criteria for malnutrition, MD notified. Recommend advancing to Low Fiber diet as tolerated per MD discretion. Noted w/ 150ml ostomy output 04/15 and NGT has been removed. Will continue to monitor. Addendum: 04/16/22 at [address] Amended: Links added.
[2022-04-16] MEDS: vancomycin/NS 1 GM ADD-VANTAGE 250 ML IV SCH (08:08)
[2022-04-16] MEDS: pantoprazole 40MG/NS 100ML BAG 100 ML IV SCH (08:08)
[2022-04-16] MEDS: metoprolol tartrate 50mg tablet PO SCH ×2 (08:09→19:23)
[2022-04-16 10:00] VITALS: BP 147/89
[2022-04-16] MEDS: HYDROcodone/acetaminophen 10/325mg tab PO PRN ×5 (11:52→23:32)
--- NOTE | 2022-04-16 13:59 | NUR ---
Ostomy pouch in place w/ thick liquid stool noted. Provided pt with written ostomy education as well as Ostomy To Go kit list. Pt noted to be hesitant to talk about ostomy as well as look at pouch. He was able to return demonstration on how to open and close tail of pouch and listened/watched demo on cleaning after emptying. Ostomy pouch removed and pt noted to become lightheaded and sweaty. Put foot of bed up. He was not able to look at stoma today and was reassured that [facility] nurse would return to do more education with him. Stoma is red moist slightly edematous, os centered, no mucocutaneous separation noted and peristomal skin is intact. Stoma measures 44 mm. Placed Arabella # [id number] open to 51mm. Pt tolerated well. [facility] nurse to return to see pt in afternoon as well as in am to continue education. He states that he will be going to rehab and may have someone at home who can learn to change pouch for him. He was encouraged to watch You Tube videos on ostomy changes. Addendum: 04/16/22 at 1403 by Alma Hawkins RN Amended: Links added.
[2022-04-16 18:00] VITALS: BP 163/73
[2022-04-16] MEDS: ringers solution, lacted 1,000 ML IV SCH (18:27)
--- NOTE | 2022-04-16 18:48 | NUR ---
Problems reprioritized. Patient report given, questions answered & plan of care reviewed
[2022-04-16] MEDS: enoxaparin 40mg/0.4ml syringe SUBCUT SCH (19:24)
[2022-04-16 22:00] VITALS: BP 169/96
[2022-04-17] MEDS: HYDROcodone/acetaminophen 10/325mg tab PO PRN ×5 (03:56→21:45)
--- NOTE | 2022-04-17 04:36 | NUR ---
Problems reprioritized. Patient report given, questions answered & plan of care reviewed Jeanne TAPIA Addendum: 04/17/22 at 0450 by Jane Constantino LVN Wrong date and time. For 04/16/2022 at 1800
--- NOTE | 2022-04-17 06:34 | NUR ---
Patient in room ORTHO 4007. I have received report from Jane TAPIA and had the opportunity to ask questions and assume patient care.
[2022-04-17] MEDS: metoprolol tartrate 50mg tablet PO SCH ×2 (07:34→19:17)
[2022-04-17] MEDS: pantoprazole 40MG/NS 100ML BAG 100 ML IV SCH (07:35)
[2022-04-17] MEDS: ipratropium/albuterol 3ml nebule NEB SCH ×5 (08:16→23:52)
[2022-04-17] MEDS: piperacillin/tazo 3.375gm/50ml 50 ML IV SCH ×2 (09:56→17:27)
[2022-04-17 10:15] VITALS: BP 129/85
--- NOTE | 2022-04-17 13:07 | NUR ---
patient up in chair with PT colostomy working today soft brown stool. Dressing changed to abdomen.
--- NOTE | 2022-04-17 14:25 | NUR ---
Charge Nurse stated pt's transfer was cancelled per insurance company. Pt was on [facility] gurney, and was transferred back into his bed by ambulance crew. Pt drea well.
--- NOTE | 2022-04-17 17:33 | NUR ---
medicated x3 for pain with good result see emar. patient up in chair working with PT. Nursing staff able to transfer patient back to bed poncho moncada and two assist. dressing to mid abdomen changed , colostomy moved x1 today patient stable at time of report.
[2022-04-17 18:00] VITALS: BP_SYST 136; BP_SYST 155; BP_DIAS 100; BP_DIAS 98
--- NOTE | 2022-04-17 18:39 | NUR ---
Problems reprioritized. Patient report given, questions answered & plan of care reviewed with Jane TAPIA.
[2022-04-17] MEDS: enoxaparin 40mg/0.4ml syringe SUBCUT SCH (19:15)
[2022-04-17 22:00] VITALS: BP 141/84
--- NOTE | 2022-04-17 23:25 | NUR ---
Reviewed patient charting and concur with assessment of patient. Abd is a little distended in appearance.
[2022-04-18] MEDS: HYDROcodone/acetaminophen 10/325mg tab PO PRN ×5 (02:14→19:25)
[2022-04-18 06:00] VITALS: BP 146/86
[2022-04-18 06:17] LABS: BASOPHILS % (AUTO) 0.2 % (0-1); EOSINOPHILS # (AUTO) 0.2 X10'3 (0-0.9); EOSINOPHILS % (AUTO) 1.1 % (0-6); HEMATOCRIT 27.5 % (42.0-52.0); HEMOGLOBIN 8.9 g/dl (14.0-17.9); LYMPHOCYTES # (AUTO) 1.1 X10'3 (1.1-4.8); LYMPHOCYTES % (AUTO) 6.9 % (21-51); MEAN CORPUSCULAR HEMOGLOBIN 27.4 PG (27.0-31.0); MEAN CORPUSCULAR HGB CONC 32.4 g/dL (33.0-36.5); MEAN CORPUSCULAR VOLUME 84.5 FL (78-98); MEAN PLATELET VOLUME 7.5 FL (7.4-10.4); MONOCYTES # (AUTO) 1.6 X10'3 (0-0.9); MONOCYTES % (AUTO) 9.3 % (2-12); NEUTROPHILS # (AUTO) 13.8 X10'3 (1.8-7.7); NEUTROPHILS % (AUTO) 82.5 % (42-75); PLATELET COUNT 464 X10'3 (140-440); RED BLOOD COUNT 3.25 X10'6 (4.70-6.10); RED CELL DISTRIBUTION WIDTH 19.3 % (11.5-14.5); WHITE BLOOD COUNT 16.7 X10'3 (4.5-11.0)
[2022-04-18 06:29] LABS: ALANINE AMINOTRANSFERASE 13 U/L (12-78); ALBUMIN 2.2 G/DL (3.4-5.0); ALBUMIN/GLOBULIN RATIO 0.5 (1.1-1.5); ALKALINE PHOSPHATASE 79 IU/L (46-116); ANION GAP 4 (8-16); ASPARTATE AMINO TRANSFERASE 23 U/L (10-37); BILIRUBIN,TOTAL 0.6 MG/DL (0.1-1.0); BLOOD UREA NITROGEN 17 MG/DL (7-18); CALCIUM 8.1 MG/DL (8.5-10.1); CHLORIDE 104 MMOL/L (99-107); CREATININE 0.85 MG/DL (0.60-1.10); GLUCOSE 105 MG/DL (70-104); POTASSIUM 3.6 MMOL/L (3.5-5.1); SODIUM 136 MMOL/L (135-145); TOTAL CARBON DIOXIDE 27.8 MMOL/L (24-32); TOTAL PROTEIN 6.4 G/DL (6.4-8.2); TRIGLYCERIDES 124 MG/DL (20-135); eGFR > 90 ML/MIN
--- NOTE | 2022-04-18 06:52 | NUR ---
Patient in room ORTHO 4007. I have received report from REGINA Lara and had the opportunity to ask questions and assume patient care.
[2022-04-18] MEDS: ipratropium/albuterol 3ml nebule NEB SCH ×5 (07:00→23:21)
[2022-04-18 07:05] LABS: ANISOCYTOSIS 2+; PLATELET ESTIMATE INCREASED
[2022-04-18 07:08] LABS: MICROCYTOSIS 1+; POIKILOCYTOSIS FEW
[2022-04-18] MEDS: pantoprazole 40MG/NS 100ML BAG 100 ML IV SCH (09:11)
[2022-04-18] MEDS: metoprolol tartrate 50mg tablet PO SCH ×2 (09:12→19:11)
[2022-04-18 10:00] VITALS: BP 161/84
[2022-04-18] MEDS: piperacillin/tazo 3.375gm/50ml 50 ML IV SCH ×3 (10:57→16:51)
[2022-04-18] MEDS ORDERED: LORazepam 1 MG tablet PO PRN (11:15)
--- NOTE | 2022-04-18 13:14 | NUR ---
Late entry for 04/17/2022 Arrived in room and pt states that he may be going to rehab today. Provided him with You Tube links to watch ostomy changes done by male ostomates. He is noted to have semi thick brown effluent in pouch and was educated on importance of hydration and to empty pouch when 1/3 full. Report to primary nurse to have pt assist in emptying pouch. Will continue to touch base with pt and provide instruction. Addendum: 04/18/22 at 1320 by Alma Hawkins RN Amended: Links added.
--- NOTE | 2022-04-18 13:52 | NUR ---
F/u 04/18: Pt advanced to regular diet from initial clears/NPO first PO 04/17 ~25-50% avg meals fluctuating. ELIZABETH d/w RN regarding change to low-fiber given new colostomy status if MD agreeable. Colostomy -50ml so far today w/ 150ml 04/15-04/17 per EMR. Pt seen by ELZIABETH for written/verbal low-fiber diet ed w/ RD contact information, [email or web address] resources, and fiber contents of food list provided. RD encouraged pt to contact dietitian's office if further questions/concerns. Pt reports lower PO intake LINING FINISHER as well requests Ensure Enlive TIDWM; appropriate given would healing needs and malnutrition status. MD notified of RD ONS recs. Dietary notified to avoid potential ostomy-clogging foods since pt remains on regular diet. Will monitor for further nutrition intervention needs this admit. Rec: 1. advance diet as medically indicated to low-residue 2. Ensure Enlive TIDWM; pending MD verification in EMR 3. bowel care per rx 4. daily wts Addendum: 04/18/22 at [address] Amended: Links added.
--- NOTE | 2022-04-18 13:57 | NUR ---
Reviewed emptying pouch with pt again this am. He is watching You Tube videos. Provided him with Arabella #[id number] and skin prep w/ education on how to use and he will likely be here over the weekend. Discussed with pt and w/ primary nurse importance of emptying pouch. Addendum: 04/18/22 at 1401 by Alma Hawkins RN Amended: Links added.
[2022-04-18 17:00] VITALS: BP 153/97
--- NOTE | 2022-04-18 17:17 | NUR ---
Due to being off nursing ratios again today I wanted to do wound care for the patient this afternoon. Patient refused stating that he is hurting quite a bit and he wants to have wound care done after dinner.
[2022-04-18] MEDS: lactose-reduced food (Ensure Enlive) - 237ml bottle PO SCH (18:00)
--- NOTE | 2022-04-18 18:30 | NUR ---
Patient in room ORTHO 4007. I have received report from Stefany TAPIA and had the opportunity to ask questions and assume patient care.
--- NOTE | 2022-04-18 19:01 | NUR ---
Today I was off ratios again with 5 patients including 2 tele patients. For that reason medication administration and patient care was delayed.
--- NOTE | 2022-04-18 19:02 | NUR ---
Problems reprioritized. Patient report given, questions answered & plan of care reviewed with REGINA Conroy.
[2022-04-18] MEDS: enoxaparin 40mg/0.4ml syringe SUBCUT SCH (19:11)
[2022-04-18 22:00] VITALS: BP 141/87
[2022-04-19] MEDS: HYDROcodone/acetaminophen 10/325mg tab PO PRN ×3 (04:13→21:10)
[2022-04-19 05:00] VITALS: BP 143/71
--- NOTE | 2022-04-19 06:48 | NUR ---
Problems reprioritized. Patient report given, questions answered & plan of care reviewed with Teena TAPIA.
--- NOTE | 2022-04-19 06:56 | NUR ---
Patient in room ORTHO 4007. I have received report from REGINA Conroy and had the opportunity to ask questions and assume patient care.
[2022-04-19] MEDS: ipratropium/albuterol 3ml nebule NEB SCH ×5 (07:36→23:00)
[2022-04-19] MEDS: lactose-reduced food (Ensure Enlive) - 237ml bottle PO SCH ×3 (08:00→18:18)
[2022-04-19] MEDS: piperacillin/tazo 3.375gm/50ml 50 ML IV SCH ×3 (09:37→17:33)
[2022-04-19] MEDS: pantoprazole 40MG/NS 100ML BAG 100 ML IV SCH (09:37)
[2022-04-19] MEDS: metoprolol tartrate 50mg tablet PO SCH ×2 (09:42→19:30)
[2022-04-19 10:00] VITALS: BP 158/85
[2022-04-19] MEDS ORDERED: ondansetron/PF 4mg/2ml inj IV PRN (10:45)
--- NOTE | 2022-04-19 11:30 | NUR ---
pt requesting for dressing to be changed after lunch Addendum: 04/19/22 at 1235 by Teena Bean RN Amended: Links added.
[2022-04-19] MEDS: HYDROmorphone inj. 0.5 MG/0.5 ML DISP.SYRIN IV PRN ×2 (12:10→19:31)
[2022-04-19 18:00] VITALS: BP 134/90
--- NOTE | 2022-04-19 18:30 | NUR ---
Patient in room ORTHO 4007. I have received report from Teena TAPIA and had the opportunity to ask questions and assume patient care.
--- NOTE | 2022-04-19 18:37 | NUR ---
Problems reprioritized. Patient report given, questions answered & plan of care reviewed with REGINA Conroy.
[2022-04-19] MEDS: enoxaparin 40mg/0.4ml syringe SUBCUT SCH (19:31)
[2022-04-19 22:00] VITALS: BP 119/68
[2022-04-20] MEDS: piperacillin/tazo 3.375gm/50ml 50 ML IV SCH ×3 (00:06→16:37)
[2022-04-20] MEDS: HYDROmorphone inj. 0.5 MG/0.5 ML DISP.SYRIN IV PRN ×2 (00:12→16:37)
[2022-04-20 06:00] VITALS: BP 122/77
--- NOTE | 2022-04-20 06:05 | NUR ---
Problems reprioritized. Patient report given, questions answered & plan of care reviewed with Alyson TAPIA.
[2022-04-20] MEDS: HYDROcodone/acetaminophen 10/325mg tab PO PRN ×3 (06:30→21:08)
[2022-04-20] MEDS: ipratropium/albuterol 3ml nebule NEB SCH ×5 (07:32→22:09)
[2022-04-20] MEDS: lactose-reduced food (Ensure Enlive) - 237ml bottle PO SCH ×3 (08:00→18:21)
[2022-04-20] MEDS: pantoprazole 40MG/NS 100ML BAG 100 ML IV SCH (09:45)
[2022-04-20] MEDS: metoprolol tartrate 50mg tablet PO SCH ×2 (09:48→21:12)
[2022-04-20 10:00] VITALS: BP 141/81
--- NOTE | 2022-04-20 12:52 | NUR ---
PAGER ID: [phone] MESSAGE: Florian Boss 4007 Last labs 04/18 WBC 16.7. Do you want labs today for re-eval? Alyson [id number]
[2022-04-20 18:00] VITALS: BP 138/88
--- NOTE | 2022-04-20 18:50 | NUR ---
Patient in room ORTHO 4007. I have received report from Alyson TAPIA and had the opportunity to ask questions and assume patient care.
--- NOTE | 2022-04-20 18:59 | NUR ---
Gave report to Valeria TAPIA.
[2022-04-20] MEDS: enoxaparin 40mg/0.4ml syringe SUBCUT SCH (21:14)
[2022-04-20 22:00] VITALS: BP 119/81
[2022-04-21] MEDS: piperacillin/tazo 3.375gm/50ml 50 ML IV SCH (00:49)
[2022-04-21] MEDS: HYDROmorphone inj. 0.5 MG/0.5 ML DISP.SYRIN IV PRN ×2 (00:50→19:32)
[2022-04-21] MEDS: HYDROcodone/acetaminophen 10/325mg tab PO PRN ×4 (04:19→23:33)
[2022-04-21 06:00] VITALS: BP 143/92
[2022-04-21 06:28] LABS: BASOPHILS # (AUTO) 0.1 X10'3 (0-0.2); BASOPHILS % (AUTO) 0.3 % (0-1); EOSINOPHILS # (AUTO) 0.1 X10'3 (0-0.9); EOSINOPHILS % (AUTO) 0.6 % (0-6); HEMATOCRIT 26.7 % (42.0-52.0); HEMOGLOBIN 8.4 g/dl (14.0-17.9); LYMPHOCYTES # (AUTO) 0.9 X10'3 (1.1-4.8); LYMPHOCYTES % (AUTO) 4.1 % (21-51); MEAN CORPUSCULAR HEMOGLOBIN 26.1 PG (27.0-31.0); MEAN CORPUSCULAR HGB CONC 31.6 g/dL (33.0-36.5); MEAN CORPUSCULAR VOLUME 82.6 FL (78-98); MEAN PLATELET VOLUME 7.9 FL (7.4-10.4); MONOCYTES # (AUTO) 2.4 X10'3 (0-0.9); MONOCYTES % (AUTO) 10.3 % (2-12); NEUTROPHILS # (AUTO) 19.4 X10'3 (1.8-7.7); NEUTROPHILS % (AUTO) 84.7 % (42-75); PLATELET COUNT 572 X10'3 (140-440); RED BLOOD COUNT 3.24 X10'6 (4.70-6.10); RED CELL DISTRIBUTION WIDTH 19.2 % (11.5-14.5); WHITE BLOOD COUNT 22.9 X10'3 (4.5-11.0)
--- NOTE | 2022-04-21 06:30 | NUR ---
Patient report given to Alyson TAPIA
[2022-04-21 07:05] LABS: ALANINE AMINOTRANSFERASE 11 U/L (12-78); ALBUMIN/GLOBULIN RATIO 0.4 (1.1-1.5); ALKALINE PHOSPHATASE 88 IU/L (46-116); ANION GAP 6 (8-16); ASPARTATE AMINO TRANSFERASE 27 U/L (10-37); BILIRUBIN,TOTAL 0.7 MG/DL (0.1-1.0); BLOOD UREA NITROGEN 15 MG/DL (7-18); BUN/CREATININE RATIO 19.2 (5.4-32.0); CALCIUM 8.5 MG/DL (8.5-10.1); CHLORIDE 101 MMOL/L (99-107); CREATININE 0.78 MG/DL (0.60-1.10); GLUCOSE 91 MG/DL (70-104); POTASSIUM 4.2 MMOL/L (3.5-5.1); SODIUM 134 MMOL/L (135-145); TOTAL CARBON DIOXIDE 26.9 MMOL/L (24-32); TOTAL PROTEIN 6.7 G/DL (6.4-8.2); eGFR > 90 ML/MIN
[2022-04-21] MEDS: ipratropium/albuterol 3ml nebule NEB SCH ×5 (07:16→23:23)
--- NOTE | 2022-04-21 07:47 | NUR ---
Reassessment: Pt's diet has been appropriately changed to Low fiber diet though pt continues w/ low PO intake, avg 20% x 8 meals and 50% of ONS partially meeting needs. Noted that pt complains of abd pain r/t dressing changes, could be impacting PO. Documented w/ 250ml ostomy output 04/19. No change to recommendations at this time, will continue to monitor. Rec: 1. Continue Low Fiber diet as tolerate 2. Ensure Enlive TIDWM 3. bowel care per MD 4. daily wts Addendum: 04/21/22 at [address] Amended: Links added.
[2022-04-21] MEDS: pantoprazole 40MG/NS 100ML BAG 100 ML IV SCH (08:30)
[2022-04-21] MEDS: metoprolol tartrate 50mg tablet PO SCH ×2 (08:31→19:12)
[2022-04-21] MEDS: lactose-reduced food (Ensure Enlive) - 237ml bottle PO SCH ×3 (08:33→18:00)
--- NOTE | 2022-04-21 09:05 | NUR ---
HOSPITALIST ROUNDED ON PT, ASSESSED PT. AND LOOKED AT WOUND BED. SEE NEW ORDERS.
[2022-04-21 10:00] VITALS: BP 134/80
[2022-04-21 10:06] LABS: AMYLASE 102 U/L (25-115); LIPASE 330 U/L (73-393)
[2022-04-21] MEDS: diatr meglu/diatrizoate 30ml oral sol.-(3 dose) bottle PO SCH ×3 (10:22→16:19)
[2022-04-21] MEDS ORDERED: iohexol 350MG/ML 100ml bottle IV ONE (13:00)
[2022-04-21 15:43] LABS: CLARITY,URINE CLEAR (Clear); COLOR,URINE YELLOW (Yellow); GLUCOSE, URINE NEGATIVE (Neg); KETONES,URINE NEGATIVE (Neg); LEUKOCYTE ESTERASE ,URINE NEGATIVE (Neg); NITRITES, URINE NEGATIVE (Neg); OCCULT BLOOD,URINE SMALL (Neg); PROTEIN,URINE NEGATIVE (Neg); UA COLLECTION TYPE CLN CATCH MIDSTREAM; UROBILINOGEN,URINE 0.2 E.U/dL (0.2-1.0)
[2022-04-21 15:53] LABS: BACTERIA,URINE NONE SEEN /HPF (Neg); SQUAMOUS EPITHELIAL CELL,UR FEW /LPF (FEW); WBC,URINE NONE SEEN /HPF (0-4)
[2022-04-21] MEDS: cloNIDine 0.1 MG/24 HOUR patch (7 day patch) TD SCH (16:30)
--- NOTE | 2022-04-21 17:36 | NUR ---
PAGER ID: [phone] MESSAGE: Florian Boss 4007 Need Tylenol order for 100.1 axillary temp. Also pt. may benefit from stool softner. 500ml - lots of output after gastroview! Alyson [id number]
[2022-04-21] MEDS ORDERED: acetaminophen 325mg tablet PO PRN (17:40)
[2022-04-21 18:00] VITALS: BP 138/85
--- NOTE | 2022-04-21 18:20 | NUR ---
Patient in room ORTHO 4006. I have received report from Alyson TAPIA and had the opportunity to ask questions and assume patient care. Addendum: 04/21/22 at 1844 by Jacy Gomez RN Amended: Links added.
--- NOTE | 2022-04-21 18:33 | NUR ---
Dr. Mckeon rounding- states abscess shown in upper abdomen per CT scan. He has spoke to IR and they can drain this tomorrow. NPO after midnight. Oncoming RN aware. Gave report to Jacy TAPIA.
[2022-04-21] MEDS: enoxaparin 40mg/0.4ml syringe SUBCUT SCH (19:12)
[2022-04-21 22:00] VITALS: BP 125/79
[2022-04-22] VITALS (7 sets, daily range): BP systolic 108–140; BP diastolic 70–92
[2022-04-22] MEDS: piperacillin/tazo 3.375gm/50ml 50 ML IV SCH ×4 (00:25→23:31)
--- NOTE | 2022-04-22 00:33 | NUR ---
Pt. lawton at this time. Addendum: 04/22/22 at 0111 by Jacy Gomez RN Amended: Links added.
[2022-04-22] MEDS: HYDROmorphone inj. 0.5 MG/0.5 ML DISP.SYRIN IV PRN ×3 (03:32→16:15)
--- NOTE | 2022-04-22 05:00 | NUR ---
Pt. with continuous c/o abd pain this shift medicated; no c/o n/v bowel sounds present bilaterally this shift. Colostomy patent with loss stools noted. Isolation precaution maintained. Abd. drsg changed as ordered. Call light within reach and bed in low position. Addendum: 04/22/22 at 0700 by Jacy Gomez RN Amended: Links added.
--- NOTE | 2022-04-22 06:20 | NUR ---
Problems reprioritized. Patient report given, questions answered & plan of care reviewed with Jeanne TAPIA. Addendum: 04/22/22 at 0648 by Jacy Gomez RN Amended: Links added.
--- NOTE | 2022-04-22 06:56 | NUR ---
Patient in room ORTHO 4007. I have received report from REGINA Louie and had the opportunity to ask questions and assume patient care.
[2022-04-22] MEDS: lactose-reduced food (Ensure Enlive) - 237ml bottle PO SCH ×3 (07:11→18:00)
[2022-04-22] MEDS: ipratropium/albuterol 3ml nebule NEB SCH ×5 (07:47→23:31)
[2022-04-22] MEDS: metoprolol tartrate 50mg tablet PO SCH ×2 (08:40→20:49)
[2022-04-22] MEDS: pantoprazole 40mg Tablet.DR PO SCH (08:40)
[2022-04-22 08:41] LABS: EOSINOPHILS # (AUTO) 0.1 X10'3 (0-0.9); HEMOGLOBIN 8.6 g/dl (14.0-17.9); LYMPHOCYTES # (AUTO) 1.2 X10'3 (1.1-4.8); WHITE BLOOD COUNT 24.7 X10'3 (4.5-11.0)
[2022-04-22 08:43] LABS: BASOPHILS # (AUTO) 0.2 X10'3 (0-0.2); BASOPHILS % (AUTO) 0.8 % (0-1); EOSINOPHILS % (AUTO) 0.4 % (0-6); HEMATOCRIT 26.4 % (42.0-52.0); LYMPHOCYTES % (AUTO) 4.7 % (21-51); MEAN CORPUSCULAR HEMOGLOBIN 27.1 PG (27.0-31.0); MEAN CORPUSCULAR HGB CONC 32.4 g/dL (33.0-36.5); MEAN CORPUSCULAR VOLUME 83.4 FL (78-98); MEAN PLATELET VOLUME 7.6 FL (7.4-10.4); MONOCYTES # (AUTO) 2.5 X10'3 (0-0.9); MONOCYTES % (AUTO) 9.9 % (2-12); NEUTROPHILS # (AUTO) 20.8 X10'3 (1.8-7.7); NEUTROPHILS % (AUTO) 84.2 % (42-75); PLATELET COUNT 666 X10'3 (140-440); RED BLOOD COUNT 3.17 X10'6 (4.70-6.10); RED CELL DISTRIBUTION WIDTH 19.8 % (11.5-14.5)
[2022-04-22 09:04] LABS: ALANINE AMINOTRANSFERASE 9 U/L (12-78); ALBUMIN/GLOBULIN RATIO 0.4 (1.1-1.5); ALKALINE PHOSPHATASE 94 IU/L (46-116); ANION GAP 6 (8-16); BILIRUBIN,TOTAL 0.6 MG/DL (0.1-1.0); BLOOD UREA NITROGEN 15 MG/DL (7-18); BUN/CREATININE RATIO 22.4 (5.4-32.0); CALCIUM 8.7 MG/DL (8.5-10.1); CHLORIDE 99 MMOL/L (99-107); CREATININE 0.67 MG/DL (0.60-1.10); GLUCOSE 107 MG/DL (70-104); POTASSIUM 4.3 MMOL/L (3.5-5.1); SODIUM 132 MMOL/L (135-145); eGFR > 90 ML/MIN
[2022-04-22 09:06] LABS: ASPARTATE AMINO TRANSFERASE 20 U/L (10-37)
[2022-04-22] MEDS: HYDROcodone/acetaminophen 10/325mg tab PO PRN ×2 (10:39→20:48)
[2022-04-22] MEDS ORDERED: fentaNYL/PF 50MCG/1 ML 2ML syringe ONE (11:04)
[2022-04-22] MEDS ORDERED: midazolam 1 mg/ML 2ml injection ONE (11:04)
--- NOTE | 2022-04-22 11:45 | NUR ---
Pt returned from IR with drain present to low medial abdomen, purulent drainage present and sent for testing.
--- NOTE | 2022-04-22 18:45 | NUR ---
Problems reprioritized. Patient report given, questions answered & plan of care reviewed with REGINA Louie.
[2022-04-22] MEDS: enoxaparin 40mg/0.4ml syringe SUBCUT SCH (20:47)
--- NOTE | 2022-04-22 22:30 | NUR ---
Pt. awake A & O at this time, c/o pain 07/26 medicated as ordered. Abd. wound with drsg CDI at this time left KEREN drain patent with purulent drainage noted-surrounding skin without s/s of complications at this time. Call light within reach and bed in low position. Addendum: 04/22/22 at 0796 by Jacy Gomez RN Amended: Links added.
[2022-04-22] MEDS: HYDROmorphone 1 mg/ml syringe IV PRN (23:31)
[2022-04-23] MEDS: HYDROcodone/acetaminophen 10/325mg tab PO PRN ×2 (03:52→08:39)
[2022-04-23 06:00] VITALS: BP 124/68
--- NOTE | 2022-04-23 06:10 | NUR ---
Problems reprioritized. Patient report given, questions answered & plan of care reviewed with Jeanne TAPIA. Addendum: 04/23/22 at 0636 by Jacy Gomez RN Amended: Links added.
--- NOTE | 2022-04-23 06:45 | NUR ---
Patient in room ORTHO 4007. I have received report from REGINA Louie and had the opportunity to ask questions and assume patient care.
[2022-04-23 07:09] LABS: BASOPHILS # (AUTO) 0.1 X10'3 (0-0.2); BASOPHILS % (AUTO) 0.6 % (0-1); HEMATOCRIT 24.4 % (42.0-52.0); HEMOGLOBIN 7.9 g/dl (14.0-17.9); MEAN CORPUSCULAR VOLUME 82.4 FL (78-98); RED BLOOD COUNT 2.96 X10'6 (4.70-6.10)
[2022-04-23 07:13] LABS: EOSINOPHILS # (AUTO) 0.1 X10'3 (0-0.9); EOSINOPHILS % (AUTO) 0.9 % (0-6); LYMPHOCYTES # (AUTO) 0.9 X10'3 (1.1-4.8); LYMPHOCYTES % (AUTO) 5.5 % (21-51); MEAN CORPUSCULAR HEMOGLOBIN 26.7 PG (27.0-31.0); MEAN CORPUSCULAR HGB CONC 32.4 g/dL (33.0-36.5); MEAN PLATELET VOLUME 7.5 FL (7.4-10.4); MONOCYTES # (AUTO) 2.3 X10'3 (0-0.9); MONOCYTES % (AUTO) 14.1 % (2-12); NEUTROPHILS % (AUTO) 78.9 % (42-75); PLATELET COUNT 640 X10'3 (140-440); RED CELL DISTRIBUTION WIDTH 19.7 % (11.5-14.5); WHITE BLOOD COUNT 16.5 X10'3 (4.5-11.0)
[2022-04-23 07:35] LABS: ALANINE AMINOTRANSFERASE 9 U/L (12-78); ALBUMIN 1.9 G/DL (3.4-5.0); ALBUMIN/GLOBULIN RATIO 0.4 (1.1-1.5); ALKALINE PHOSPHATASE 94 IU/L (46-116); ANION GAP 3 (8-16); ASPARTATE AMINO TRANSFERASE 23 U/L (10-37); BILIRUBIN,TOTAL 0.4 MG/DL (0.1-1.0); BLOOD UREA NITROGEN 16 MG/DL (7-18); BUN/CREATININE RATIO 18.8 (5.4-32.0); CALCIUM 8.8 MG/DL (8.5-10.1); CHLORIDE 101 MMOL/L (99-107); CREATININE 0.85 MG/DL (0.60-1.10); GLUCOSE 106 MG/DL (70-104); POTASSIUM 4.2 MMOL/L (3.5-5.1); SODIUM 132 MMOL/L (135-145); TOTAL CARBON DIOXIDE 27.7 MMOL/L (24-32); TOTAL PROTEIN 6.7 G/DL (6.4-8.2); eGFR > 90 ML/MIN
[2022-04-23] MEDS: ipratropium/albuterol 3ml nebule NEB SCH ×5 (07:59→22:42)
[2022-04-23] MEDS: piperacillin/tazo 3.375gm/50ml 50 ML IV SCH ×3 (08:39→23:59)
[2022-04-23] MEDS: metoprolol tartrate 50mg tablet PO SCH ×2 (08:40→19:36)
[2022-04-23] MEDS: lactose-reduced food (Ensure Enlive) - 237ml bottle PO SCH ×3 (08:40→18:33)
[2022-04-23] MEDS: pantoprazole 40mg Tablet.DR PO SCH (08:40)
[2022-04-23 10:00] VITALS: BP 132/75
[2022-04-23] MEDS: HYDROmorphone 1 mg/ml syringe IV PRN ×2 (10:42→19:51)
[2022-04-23] MEDS: oxyCODONE/APAP 10/325mg tablet PO PRN ×2 (14:00→23:03)
[2022-04-23 18:00] VITALS: BP 128/78
--- NOTE | 2022-04-23 18:10 | NUR ---
Patient in room ORTHO 4006. I have received report from Jeanne TAPIA and had the opportunity to ask questions and assume patient care. Addendum: 04/23/22 at 1917 by Jacy Gomez RN Amended: Links added.
--- NOTE | 2022-04-23 18:32 | NUR ---
Problems reprioritized. Patient report given, questions answered & plan of care reviewed with REGINA Louie.
[2022-04-23] MEDS: enoxaparin 40mg/0.4ml syringe SUBCUT SCH (19:36)
[2022-04-23 22:00] VITALS: BP 139/82
[2022-04-23] MEDS: Dakins solution (1/4 strength) 473ml solution TP SCH (23:59)
[2022-04-24] MEDS: HYDROmorphone 1 mg/ml syringe IV PRN ×3 (00:27→23:59)
[2022-04-24] MEDS: oxyCODONE/APAP 10/325mg tablet PO PRN ×3 (04:44→16:00)
--- NOTE | 2022-04-24 05:00 | NUR ---
Problems reprioritized. Patient report given, questions answered & plan of care reviewed with Rosangela TAPIA.
--- NOTE | 2022-04-24 05:00 | NUR ---
Pt. with continuous pain this shift medicated as ordered. KEREN drain patent with purulent drainage noted in the collecting chamber. Changed wound drsg to abd as ordered. Isolation precaution maintained- IV Antibiotics in place. Addendum: 04/24/22 at 0706 by Jacy Gomez RN Amended: Links added.
[2022-04-24 06:00] VITALS: BP 143/85
[2022-04-24 06:14] LABS: BASOPHILS # (AUTO) 0.1 X10'3 (0-0.2); EOSINOPHILS # (AUTO) 0.1 X10'3 (0-0.9); HEMOGLOBIN 7.3 g/dl (14.0-17.9); LYMPHOCYTES # (AUTO) 1.1 X10'3 (1.1-4.8); MEAN CORPUSCULAR HGB CONC 32.9 g/dL (33.0-36.5)
[2022-04-24 06:16] LABS: BASOPHILS % (AUTO) 0.8 % (0-1); HEMATOCRIT 22.3 % (42.0-52.0); LYMPHOCYTES % (AUTO) 7.3 % (21-51); MEAN CORPUSCULAR HEMOGLOBIN 27.3 PG (27.0-31.0); MEAN PLATELET VOLUME 7.6 FL (7.4-10.4); MONOCYTES # (AUTO) 1.9 X10'3 (0-0.9); MONOCYTES % (AUTO) 13.2 % (2-12); NEUTROPHILS # (AUTO) 11.5 X10'3 (1.8-7.7); NEUTROPHILS % (AUTO) 77.7 % (42-75); PLATELET COUNT 643 X10'3 (140-440); RED BLOOD COUNT 2.69 X10'6 (4.70-6.10); RED CELL DISTRIBUTION WIDTH 19.8 % (11.5-14.5); WHITE BLOOD COUNT 14.8 X10'3 (4.5-11.0)
--- NOTE | 2022-04-24 06:20 | NUR ---
Problems reprioritized. Patient report given, questions answered & plan of care reviewed with Rosangela TAPIA. Addendum: 04/24/22 at 0702 by Jacy Gomez RN Amended: Links added.
[2022-04-24 06:25] LABS: ALANINE AMINOTRANSFERASE 8 U/L (12-78); ALBUMIN 1.9 G/DL (3.4-5.0); ALBUMIN/GLOBULIN RATIO 0.4 (1.1-1.5); ALKALINE PHOSPHATASE 96 IU/L (46-116); ANION GAP 9 (8-16); ASPARTATE AMINO TRANSFERASE 24 U/L (10-37); BILIRUBIN,TOTAL 0.4 MG/DL (0.1-1.0); BLOOD UREA NITROGEN 18 MG/DL (7-18); BUN/CREATININE RATIO 19.6 (5.4-32.0); CALCIUM 8.8 MG/DL (8.5-10.1); CHLORIDE 100 MMOL/L (99-107); CREATININE 0.92 MG/DL (0.60-1.10); GLUCOSE 104 MG/DL (70-104); POTASSIUM 4.2 MMOL/L (3.5-5.1); SODIUM 135 MMOL/L (135-145); TOTAL CARBON DIOXIDE 26.2 MMOL/L (24-32); TOTAL PROTEIN 6.9 G/DL (6.4-8.2); eGFR 87 ML/MIN
--- NOTE | 2022-04-24 06:55 | NUR ---
Patient in room ORTHO 4007. I have received report from samantha virk and had the opportunity to ask questions and assume patient care.
[2022-04-24 07:02] LABS: ANISOCYTOSIS 2+; HYPOCHROMASIA 1+; PLATELET ESTIMATE INCREASED
[2022-04-24 07:03] LABS: TARGET CELLS FEW
[2022-04-24] MEDS: ipratropium/albuterol 3ml nebule NEB SCH ×5 (07:27→23:03)
[2022-04-24] MEDS: Dakins solution (1/4 strength) 473ml solution TP SCH ×2 (08:00→19:54)
[2022-04-24] MEDS: lactose-reduced food (Ensure Enlive) - 237ml bottle PO SCH ×3 (08:42→18:14)
[2022-04-24] MEDS: pantoprazole 40mg Tablet.DR PO SCH (08:42)
[2022-04-24] MEDS: piperacillin/tazo 3.375gm/50ml 50 ML IV SCH ×3 (08:42→23:59)
[2022-04-24] MEDS: metoprolol tartrate 50mg tablet PO SCH ×2 (08:42→19:54)
[2022-04-24 10:00] VITALS: BP 122/86
--- NOTE | 2022-04-24 10:41 | NUR ---
Reassessment: Pt with poor PO intake overall, documented with mostly 0-25% PO intake of meals with fluctuating acceptance of ONS. Overall not meeting estimated nutrient needs. Pt seen at bedside, states he's been afraid to eat because he's not sure if he's allowed to eat what's being provided and is worried about having high stool output. RD assured pt that he is on the appropriate diet and can eat what is being sent to him. Pt also reports appetite is low but improving following abscess drain 04/22. Food preferences were obtained and d/w dietary, see below. Pt also requests chocolate or strawberry flavors for the Ensure only, d/w dietary. Pt provided with RD contact information and encouraged to reach out if needed. Pt reports good stool output from colostomy. Per EMR pt with 300 mL stool output 04/23. Will continue to follow closely. Recommendations: 1. Continue low fiber diet 2. Chocolate or strawberry Ensure Enlive TIDWM 3. [place] food preferences: cottage cheese with fruit TID, chop meat and extra gravy TID; milk, yogurt, extra sugar WB; smoothie BIDLD; popsicle WL; [place] ice WS 4. Bowel care per MD 5. Weekly scaled weights Addendum: 04/24/22 at [address] Amended: Links added.
[2022-04-24 14:00] VITALS: BP 138/84
[2022-04-24 14:39] LABS: HEMOGLOBIN 7.6 g/dl (14.0-17.9); MEAN CORPUSCULAR HEMOGLOBIN 27.3 PG (27.0-31.0); MEAN CORPUSCULAR HGB CONC 32.8 g/dL (33.0-36.5); MEAN CORPUSCULAR VOLUME 83.2 FL (78-98); MEAN PLATELET VOLUME 7.5 FL (7.4-10.4); PLATELET COUNT 699 X10'3 (140-440); RED BLOOD COUNT 2.77 X10'6 (4.70-6.10); RED CELL DISTRIBUTION WIDTH 19.7 % (11.5-14.5); WHITE BLOOD COUNT 15.3 X10'3 (4.5-11.0)
--- NOTE | 2022-04-24 14:39 | NUR ---
PRESSURE ULCER EDUCATION: DEFINITION: A pressure ulcer is an area of skin that breaks down when you stay in one position too long. The constant pressure against the skin reduces the blood flow to that area and the affected tissue dies. CAUSES: "Being bedridden or in a wheelchair "Fragile skin "Having a chronic condition, such as diabetes or vascular disease "Inability to move certain parts of your body without assistance "Older age "Incontinence of urine or stool SYMPTOMS: "A reddened area that DOES NOT turn white when pressed on - this can be the beginning of a pressure ulcer "A blister, deep sore or a crater - these can be advanced pressure ulcers FIRST AID: "Relieve the pressure on this area "Keep the area clean and dry "Call your primary doctor if you see any of the above symptoms "DO NOT massage the area "DO NOT use a donut shaped or ring shaped pillow- these actually interfere with the blood flow and cause complications PREVENTION: "Check for pressure ulcers everyday "Change position at least every two hours to relieve pressure "Use items that help relieve pressure- pillows, sheepskin, foam padding, and powders. "Keep skin clean and dry "Eat healthy well balanced meals "Exercise daily IF YOU SEE ANY OF THESE SYMPTOMS WHILE IN THE HOSPITAL - TELL YOUR NURSE IMMEDIATELY. IF YOU SEE ANY OF THESE SYMPTOMS WHILE AT HOME OR HAVE ANY QUESTIONS OR CONCERNS ABOUT PRESSURE ULCERS - CALL YOUR PRIMARY DOCTOR IMMEDIATELY. Addendum: 04/24/22 at 1440 by Hayley Olivera LVN Amended: Links added.
[2022-04-24 18:00] VITALS: BP 114/81
--- NOTE | 2022-04-24 18:10 | NUR ---
Patient in room ORTHO 4007. I have received report from REGINA Admaes and had the opportunity to ask questions and assume patient care.
--- NOTE | 2022-04-24 18:14 | NUR ---
Problems reprioritized. Patient report given, questions answered & plan of care reviewed with RYAN TAPIA.
[2022-04-24] MEDS: enoxaparin 40mg/0.4ml syringe SUBCUT SCH (19:54)
[2022-04-24 22:00] VITALS: BP 142/77
[2022-04-25] MEDS: HYDROmorphone 1 mg/ml syringe IV PRN ×4 (04:15→23:01)
--- NOTE | 2022-04-25 06:21 | NUR ---
Problems reprioritized. Patient report given, questions answered & plan of care reviewed with REGINA Boo.
[2022-04-25 06:30] VITALS: BP 128/82
[2022-04-25] MEDS: ipratropium/albuterol 3ml nebule NEB SCH ×5 (06:57→23:00)
[2022-04-25] MEDS: metoprolol tartrate 50mg tablet PO SCH ×2 (07:41→20:42)
[2022-04-25] MEDS: pantoprazole 40mg Tablet.DR PO SCH (07:41)
[2022-04-25] MEDS: piperacillin/tazo 3.375gm/50ml 50 ML IV SCH ×2 (07:42→15:20)
[2022-04-25] MEDS: lactose-reduced food (Ensure Enlive) - 237ml bottle PO SCH ×3 (07:42→18:13)
[2022-04-25] MEDS: Dakins solution (1/4 strength) 473ml solution TP SCH ×2 (07:42→20:42)
[2022-04-25] MEDS: oxyCODONE/APAP 10/325mg tablet PO PRN ×3 (07:46→20:44)
[2022-04-25 07:52] LABS: EOSINOPHILS # (AUTO) 0.1 X10'3 (0-0.9); EOSINOPHILS % (AUTO) 0.6 % (0-6); HEMOGLOBIN 7.6 g/dl (14.0-17.9); RED BLOOD COUNT 2.82 X10'6 (4.70-6.10)
[2022-04-25 07:55] LABS: BASOPHILS # (AUTO) 0.1 X10'3 (0-0.2); BASOPHILS % (AUTO) 0.5 % (0-1); LYMPHOCYTES % (AUTO) 6.9 % (21-51); MEAN CORPUSCULAR HEMOGLOBIN 26.9 PG (27.0-31.0); MEAN CORPUSCULAR HGB CONC 32.9 g/dL (33.0-36.5); MEAN CORPUSCULAR VOLUME 81.6 FL (78-98); MEAN PLATELET VOLUME 7.1 FL (7.4-10.4); MONOCYTES # (AUTO) 1.7 X10'3 (0-0.9); MONOCYTES % (AUTO) 12.2 % (2-12); NEUTROPHILS # (AUTO) 11.3 X10'3 (1.8-7.7); NEUTROPHILS % (AUTO) 79.8 % (42-75); PLATELET COUNT 668 X10'3 (140-440); RED CELL DISTRIBUTION WIDTH 19.8 % (11.5-14.5); WHITE BLOOD COUNT 14.2 X10'3 (4.5-11.0)
[2022-04-25 08:09] LABS: ALANINE AMINOTRANSFERASE 11 U/L (12-78); ALBUMIN/GLOBULIN RATIO 0.4 (1.1-1.5); ALKALINE PHOSPHATASE 101 IU/L (46-116); ANION GAP 7 (8-16); ASPARTATE AMINO TRANSFERASE 22 U/L (10-37); BILIRUBIN,TOTAL 0.5 MG/DL (0.1-1.0); BLOOD UREA NITROGEN 14 MG/DL (7-18); BUN/CREATININE RATIO 17.9 (5.4-32.0); CALCIUM 8.5 MG/DL (8.5-10.1); CHLORIDE 99 MMOL/L (99-107); CREATININE 0.78 MG/DL (0.60-1.10); GLUCOSE 107 MG/DL (70-104); POTASSIUM 4.1 MMOL/L (3.5-5.1); SODIUM 133 MMOL/L (135-145); TOTAL CARBON DIOXIDE 27.4 MMOL/L (24-32); TOTAL PROTEIN 7.1 G/DL (6.4-8.2); TRIGLYCERIDES 107 MG/DL (20-135); eGFR > 90 ML/MIN
[2022-04-25 08:17] LABS: ANISOCYTOSIS 2+; HYPOCHROMASIA 1+; LARGE PLATELETS FEW; PLATELET ESTIMATE INCREASED
[2022-04-25 10:00] VITALS: BP 132/90
[2022-04-25 18:00] VITALS: BP 159/100
--- NOTE | 2022-04-25 18:27 | NUR ---
Patient in room ORTHO 4007. I have received report from REGINA Garcia and had the opportunity to ask questions and assume patient care.
--- NOTE | 2022-04-25 18:33 | NUR ---
Problems reprioritized. Patient report given, questions answered & plan of care reviewed with REGINA Aranda.
[2022-04-25] MEDS: enoxaparin 40mg/0.4ml syringe SUBCUT SCH (20:42)
[2022-04-25 22:00] VITALS: BP 123/89
[2022-04-26] MEDS: piperacillin/tazo 3.375gm/50ml 50 ML IV SCH ×3 (00:06→16:50)
[2022-04-26] MEDS: oxyCODONE/APAP 10/325mg tablet PO PRN ×4 (02:10→19:58)
[2022-04-26] MEDS: HYDROmorphone 1 mg/ml syringe IV PRN ×4 (05:15→21:09)
[2022-04-26 06:00] VITALS: BP 146/91
--- NOTE | 2022-04-26 06:37 | NUR ---
Problems reprioritized. Patient report given, questions answered & plan of care reviewed with REGINA Angel.
[2022-04-26] MEDS: ipratropium/albuterol 3ml nebule NEB SCH ×5 (07:19→23:00)
[2022-04-26] MEDS: metoprolol tartrate 50mg tablet PO SCH ×2 (07:52→19:59)
[2022-04-26] MEDS: pantoprazole 40mg Tablet.DR PO SCH (07:52)
[2022-04-26] MEDS: Dakins solution (1/4 strength) 473ml solution TP SCH ×2 (08:00→20:00)
[2022-04-26] MEDS: lactose-reduced food (Ensure Enlive) - 237ml bottle PO SCH ×3 (08:03→18:02)
[2022-04-26 10:00] VITALS: BP 123/81
[2022-04-26 18:30] VITALS: BP 146/82
--- NOTE | 2022-04-26 18:30 | NUR ---
Patient in room ORTHO 4007. I have received report from REGINA Angel and had the opportunity to ask questions and assume patient care. Addendum: 04/26/22 at 2302 by Mauri Forbes RN Amended: Links added.
--- NOTE | 2022-04-26 18:58 | NUR ---
Problems reprioritized. Patient report given, questions answered & plan of care reviewed with REGINA Sanchez.
[2022-04-26] MEDS: enoxaparin 40mg/0.4ml syringe SUBCUT SCH (19:59)
[2022-04-26 22:30] VITALS: BP 137/80
[2022-04-27] MEDS: piperacillin/tazo 3.375gm/50ml 50 ML IV SCH ×4 (00:59→23:29)
[2022-04-27] MEDS: HYDROmorphone 1 mg/ml syringe IV PRN ×5 (00:59→19:56)
[2022-04-27] MEDS: oxyCODONE/APAP 10/325mg tablet PO PRN ×5 (02:17→23:25)
--- NOTE | 2022-04-27 04:58 | NUR ---
dilauded given for pain, no vikki from matias, scant purulent/pink, scant vikki pepe from colostomy no flatus. Addendum: 04/27/22 at 0459 by Mauri Forbes RN Amended: Links added.
[2022-04-27 06:00] VITALS: BP 136/88
--- NOTE | 2022-04-27 06:16 | NUR ---
Problems reprioritized. Patient report given, questions answered & plan of care reviewed with REGINA Adames. Addendum: 04/27/22 at 0616 by Mauri Forbes RN Amended: Links added.
[2022-04-27] MEDS: ipratropium/albuterol 3ml nebule NEB SCH ×5 (07:25→23:09)
[2022-04-27] MEDS: pantoprazole 40mg Tablet.DR PO SCH (07:52)
[2022-04-27] MEDS: metoprolol tartrate 50mg tablet PO SCH ×2 (07:52→19:53)
[2022-04-27] MEDS: lactose-reduced food (Ensure Enlive) - 237ml bottle PO SCH ×3 (07:56→18:16)
--- NOTE | 2022-04-27 07:59 | NUR ---
Reassessment: Pt continues on Low fiber diet w/ some improvement in PO intake, avg 48% x 6 meals though has some refusals. Also consuming ~55% of ONS, still only partially meeting needs. Given prolonged poor PO, pt may benefit from supplemental TF to assist w/ meeting needs if within POC. LBM 04/26 though no stool output documented. Will continue to monitor. Recommendations: 1. Continue low fiber diet 2. Chocolate or strawberry Ensure Enlive TIDWM 3. [place] food preferences: cottage cheese with fruit TID, chop meat and extra gravy TID; milk, yogurt, extra sugar WB; smoothie BIDLD; popsicle WL; [place] ice WS 4. Bowel care per MD 5. Weekly scaled weights 6. Consider supplemental TF given prolonged poor PO Addendum: 04/27/22 at [address] Amended: Links added.
[2022-04-27] MEDS: Dakins solution (1/4 strength) 473ml solution TP SCH ×2 (08:00→19:57)
--- NOTE | 2022-04-27 08:05 | NUR ---
PAGED DR GALDAMEZ RE: PAGER ID: [phone] MESSAGE: DIANA VENTURA. ABD WOUND + VRE. O/N DIMAS [id number]
[2022-04-27] MEDS: linezolid 600mg/300ml PREMIX 300 ML IV SCH ×2 (10:30→19:52)
[2022-04-27 11:02] VITALS: BP 133/80
[2022-04-27 18:00] VITALS: BP 130/87
--- NOTE | 2022-04-27 18:18 | NUR ---
Problems reprioritized. Patient report given, questions answered & plan of care reviewed with RASHEED TAPIA.
--- NOTE | 2022-04-27 18:57 | NUR ---
Patient in room ORTHO 4007. I have received report from DIMAS TAPIA and had the opportunity to ask questions and assume patient care.
[2022-04-27] MEDS: enoxaparin 40mg/0.4ml syringe SUBCUT SCH (19:55)
[2022-04-27 22:00] VITALS: BP 137/79
[2022-04-28] MEDS: HYDROmorphone 1 mg/ml syringe IV PRN ×2 (01:54→09:15)
[2022-04-28 06:00] VITALS: BP_SYST 108; BP_SYST 139; BP_DIAS 57; BP_DIAS 79
[2022-04-28 06:18] LABS: BASOPHILS # (AUTO) 0.1 X10'3 (0-0.2); BASOPHILS % (AUTO) 0.8 % (0-1); EOSINOPHILS # (AUTO) 0.3 X10'3 (0-0.9); EOSINOPHILS % (AUTO) 2.3 % (0-6); HEMATOCRIT 23.7 % (42.0-52.0); HEMOGLOBIN 7.6 g/dl (14.0-17.9); LYMPHOCYTES % (AUTO) 8.2 % (21-51); MEAN CORPUSCULAR HEMOGLOBIN 25.8 PG (27.0-31.0); MEAN CORPUSCULAR HGB CONC 32.1 g/dL (33.0-36.5); MEAN CORPUSCULAR VOLUME 80.4 FL (78-98); MEAN PLATELET VOLUME 7.1 FL (7.4-10.4); MONOCYTES # (AUTO) 1.4 X10'3 (0-0.9); MONOCYTES % (AUTO) 12.2 % (2-12); NEUTROPHILS # (AUTO) 8.8 X10'3 (1.8-7.7); NEUTROPHILS % (AUTO) 76.5 % (42-75); PLATELET COUNT 706 X10'3 (140-440); RED BLOOD COUNT 2.95 X10'6 (4.70-6.10); RED CELL DISTRIBUTION WIDTH 20.1 % (11.5-14.5); WHITE BLOOD COUNT 11.5 X10'3 (4.5-11.0)
[2022-04-28 06:23] LABS: ANION GAP 6 (8-16); BLOOD UREA NITROGEN 14 MG/DL (7-18); BUN/CREATININE RATIO 17.3 (5.4-32.0); CALCIUM 8.9 MG/DL (8.5-10.1); CHLORIDE 98 MMOL/L (99-107); CREATININE 0.81 MG/DL (0.60-1.10); GLUCOSE 93 MG/DL (70-104); POTASSIUM 4.2 MMOL/L (3.5-5.1); SODIUM 132 MMOL/L (135-145); TOTAL CARBON DIOXIDE 28.1 MMOL/L (24-32); eGFR > 90 ML/MIN
[2022-04-28] MEDS: ipratropium/albuterol 3ml nebule NEB SCH ×5 (06:57→23:00)
[2022-04-28] MEDS: linezolid 600mg/300ml PREMIX 300 ML IV SCH ×2 (07:16→21:37)
[2022-04-28] MEDS: piperacillin/tazo 3.375gm/50ml 50 ML IV SCH ×2 (07:16→17:03)
[2022-04-28] MEDS: metoprolol tartrate 50mg tablet PO SCH ×2 (07:16→21:19)
[2022-04-28] MEDS: pantoprazole 40mg Tablet.DR PO SCH (07:16)
[2022-04-28] MEDS: oxyCODONE/APAP 10/325mg tablet PO PRN ×3 (07:16→21:38)
[2022-04-28] MEDS: Dakins solution (1/4 strength) 473ml solution TP SCH ×2 (08:00→20:00)
[2022-04-28 08:10] LABS: ANISOCYTOSIS 3+; PLATELET ESTIMATE INCREASED
[2022-04-28 08:11] LABS: HYPOCHROMASIA 1+
[2022-04-28 08:12] LABS: LARGE PLATELETS FEW
[2022-04-28] MEDS: lactose-reduced food (Ensure Enlive) - 237ml bottle PO SCH ×4 (08:48→18:46)
[2022-04-28 10:00] VITALS: BP 123/65
--- NOTE | 2022-04-28 13:14 | NUR ---
Noted pt started on zyvox. Provided pt w/ verbal and written low tyramine diet education w/ RD contact info Addendum: 04/28/22 at [address] Amended: Links added.
[2022-04-28] MEDS: cloNIDine 0.1 MG/24 HOUR patch (7 day patch) TD SCH (15:56)
[2022-04-28 18:00] VITALS: BP 137/84
--- NOTE | 2022-04-28 18:38 | NUR ---
Patient in room ORTHO 4007. I have received report from Rosangela TAPIA and had the opportunity to ask questions and assume patient care.
--- NOTE | 2022-04-28 18:52 | NUR ---
Problems reprioritized. Patient report given, questions answered & plan of care reviewed with CEFERINO TAPIA.
--- NOTE | 2022-04-28 20:00 | NUR ---
Wound care not done, Rosangela reported off per wound care, wound care dressing change to be done by wound care.
--- NOTE | 2022-04-28 20:31 | NUR ---
Wound care to dressing change, per wound care.
[2022-04-28] MEDS: enoxaparin 40mg/0.4ml syringe SUBCUT SCH (21:17)
[2022-04-28 22:23] VITALS: BP 121/89
[2022-04-29] VITALS (9 sets, daily range): BP systolic 126–156; BP diastolic 78–89
[2022-04-29] MEDS: HYDROmorphone 1 mg/ml syringe IV PRN ×5 (00:17→19:17)
[2022-04-29] MEDS: piperacillin/tazo 3.375gm/50ml 50 ML IV SCH ×3 (05:03→16:00)
--- NOTE | 2022-04-29 05:12 | NUR ---
ZOSYN GIVEN LATE DUE TO LATE NOTIFICATION OF TIME DUE
[2022-04-29] MEDS: ipratropium/albuterol 3ml nebule NEB SCH ×5 (07:16→23:20)
[2022-04-29] MEDS: Dakins solution (1/4 strength) 473ml solution TP SCH ×2 (08:00→19:28)
[2022-04-29] MEDS: lactose-reduced food (Ensure Enlive) - 237ml bottle PO SCH ×3 (08:26→19:30)
[2022-04-29] MEDS: metoprolol tartrate 50mg tablet PO SCH ×2 (08:26→19:22)
[2022-04-29] MEDS: pantoprazole 40mg Tablet.DR PO SCH (08:26)
[2022-04-29] MEDS: linezolid 600mg/300ml PREMIX 300 ML IV SCH ×2 (08:26→19:16)
[2022-04-29] MEDS: oxyCODONE/APAP 10/325mg tablet PO PRN (11:26)
--- NOTE | 2022-04-29 15:18 | NUR ---
Pt is having another procedure. Will defer ostomy care and education for tomorrow. Spoke with primary nurse. Addendum: 04/29/22 at 1519 by Alma Hawkins RN Amended: Links added.
--- NOTE | 2022-04-29 18:30 | NUR ---
Patient in room ORTHO 4007. I have received report from WILLY TAPIA and had the opportunity to ask questions and assume patient care.
[2022-04-29] MEDS: enoxaparin 40mg/0.4ml syringe SUBCUT SCH (19:23)
[2022-04-30] MEDS: piperacillin/tazo 3.375gm/50ml 50 ML IV SCH ×2 (00:16→10:10)
[2022-04-30] MEDS: HYDROmorphone 1 mg/ml syringe IV PRN ×4 (00:19→17:02)
[2022-04-30] MEDS: oxyCODONE/APAP 10/325mg tablet PO PRN ×2 (04:01→10:12)
[2022-04-30 05:00] VITALS: BP 134/78
--- NOTE | 2022-04-30 06:00 | NUR ---
Patient in room ORTHO 4007. I have received report from MICHAEL RODRIGUEZ RN and had the opportunity to ask questions and assume patient care.
--- NOTE | 2022-04-30 06:13 | NUR ---
Problems reprioritized. Patient report given, questions answered & plan of care reviewed with WILLY TAPIA.
[2022-04-30] MEDS: ipratropium/albuterol 3ml nebule NEB SCH ×3 (07:00→14:50)
[2022-04-30] MEDS: linezolid 600mg/300ml PREMIX 300 ML IV SCH (07:43)
[2022-04-30] MEDS: pantoprazole 40mg Tablet.DR PO SCH (07:43)
[2022-04-30] MEDS: lactose-reduced food (Ensure Enlive) - 237ml bottle PO SCH ×2 (07:43→13:04)
[2022-04-30] MEDS: metoprolol tartrate 50mg tablet PO SCH (07:43)
[2022-04-30] MEDS: Dakins solution (1/4 strength) 473ml solution TP SCH (07:44)
--- NOTE | 2022-04-30 08:52 | NUR ---
Reassessment: Pt with significant improvement in PO intake, documented with 100% PO intake of five out of the last seven meals. Pt also with average 90% PO intake of five most recent ONS. Overall pt meeting estimated nutrient needs at this time. LBM 04/29, no documentation of stool output in I&O. No further nutrition intervention implemented at this time. Will continue to follow. Recommendations: 1. Continue low fiber diet 2. Chocolate or strawberry Ensure Enlive TIDWM 3. [place] food preferences: cottage cheese with fruit TID, chop meat and extra gravy TID; milk, yogurt, extra sugar WB; smoothie BIDLD; popsicle WL; [place] ice WS 4. Bowel care per MD 5. Weekly scaled weights Addendum: 04/30/22 at [address] Amended: Links added.
[2022-04-30 10:00] VITALS: BP 136/83
--- NOTE | 2022-04-30 13:34 | NUR ---
Arrived in room and explained intent of visit. Pt agrees and is noted to be hesitant to pariticpate in ostomy change but agrees to try. He was able to assist with partial removal of the ostomy wafer, he was not interested in looking at his stoma at first but did near the end of cleaning peristomal skin. Stoma measures 36mm, round, os center, sutures are present and there is noted to be some peristomal separation to the 3 and 9 o'clock areas, the rest of peristomal skin is intact. Crusting technique demonstrated to pt with rationale for use to separation areas. Placed [place] #[id number] open to 40mm. Pt demonstrated how to close tail of drainge bag as well as explain how to empty ostomy pouch. Educated him on need to take more control of ostomy care and he agrees. Provided him with ostomy supplies to take home and reviewed to continue to use You Tube videos for self help. Pt will continue to need more assistance with comfort of self care. Addendum: 04/30/22 at 1403 by Amla Hawkins RN Amended: Links added.
--- NOTE | 2022-04-30 18:16 | NUR ---
DID NOT START IV ZOSYN DUE @ 1600. TRANSPORT SCHEDULED FOR 169 Addendum: 04/30/22 at 1819 by Sergio Rubio RN SCHEDULED FOR 1600 TO [facility]. DID NOT WANT A 4 HR INFUSION PARTIALLY INFUSED AT TIME OF TRANSPORT, REPORTED TO RECEIVING FACILITY DURING REPORT MY INTENTION OF NOT GIVING THIS DOSE. PATIENT STILL NOT PICKED UP, DO NOT KNOW WHERE TRANSPORT IS. WILL EXPLAIN TO ONCOMING NURSE
--- NOTE | 2022-04-30 18:30 | NUR ---
Patient in room ORTHO 4007. I have received report from WILLY TAPIA and had the opportunity to ask questions and assume patient care.PATIENT READY FOR TRANSFER TO [facility], JUST WAITING FOR TRANSPORT TO PICK HIM UP. PAPERS READY.
--- NOTE | 2022-04-30 19:00 | NUR ---
[facility] TRANSPORT HERE TO RN L AND D PATIENT FOR TRANSFER TO [facility]. PATIENT LEFT WITH [facility] TRANSPORT WITH BELONGINGS WITH HIM.
== END 2022-04-30 19:05 | DRG 710 ==
LOC: ER 06:04 → EDBD 06:04 → ED HOLD 09:31 → CICU 2S 13:30 → ORTHO 4S 04-14 15:05
PROVIDERS: ADMIT Internal Medicine Critical Care Medicine; ATTEND Internal Medicine Critical Care Medicine
PROC: 0DBN0ZZ Excision of Sigmoid Colon, Open Approach (ICD-10-PCS; 2022-04-10)
PROC: 0D1M0Z4 Bypass Descending Colon to Cutaneous, Open Approach (ICD-10-PCS; principal; 2022-04-10 11:36)
PROC: 30233N1 Transfusion of Nonautologous Red Blood Cells into Peripheral Vein, Percutaneous Approach (ICD-10-PCS; 2022-04-13)
PROC: BW251ZZ Computerized Tomography (CT Scan) of Chest, Abdomen and Pelvis using Low Osmolar Contrast (ICD-10-PCS; 2022-04-21)
PROC: 0W9F30Z Drainage of Abdominal Wall with Drainage Device, Percutaneous Approach (ICD-10-PCS; 2022-04-22)
PROC: 0F9030Z Drainage of Liver with Drainage Device, Percutaneous Approach (ICD-10-PCS; 2022-04-29)
DX: A41.9 Sepsis, unspecified organism (principal); R65.21 Severe sepsis with septic shock; J95.821 Acute postprocedural respiratory failure; K65.0 Generalized (acute) peritonitis; G93.41 Metabolic encephalopathy; R34 Anuria and oliguria; K65.1 Peritoneal abscess; E43 Unspecified severe protein-calorie malnutrition; K57.20 Diverticulitis of large intestine with perforation and abscess without bleeding; D62 Acute posthemorrhagic anemia; B96.20 Unspecified Escherichia coli [E. coli] as the cause of diseases classified elsewhere; J18.9 Pneumonia, unspecified organism; B95.62 Methicillin resistant Staphylococcus aureus infection as the cause of diseases classified elsewhere; I25.10 Atherosclerotic heart disease of native coronary artery without angina pectoris; K52.9 Noninfective gastroenteritis and colitis, unspecified; D75.839 Thrombocytosis, unspecified; I50.33 Acute on chronic diastolic (congestive) heart failure; B95.2 Enterococcus as the cause of diseases classified elsewhere; J98.11 Atelectasis; K44.9 Diaphragmatic hernia without obstruction or gangrene; N17.9 Acute kidney failure, unspecified; Z20.822 Contact with and (suspected) exposure to COVID-19; K76.0 Fatty (change of) liver, not elsewhere classified; L03.115 Cellulitis of right lower limb; R18.8 Other ascites; E87.1 Hypo-osmolality and hyponatremia; K82.8 Other specified diseases of gallbladder; L02.211 Cutaneous abscess of abdominal wall; R16.1 Splenomegaly, not elsewhere classified; R79.89 Other specified abnormal findings of blood chemistry; Z79.899 Other long term (current) drug therapy; Z68.35 Body mass index [BMI] 35.0-35.9, adult; Z79.82 Long term (current) use of aspirin; T81.31XA Disruption of external operation (surgical) wound, not elsewhere classified, initial encounter; Y83.8 Other surgical procedures as the cause of abnormal reaction of the patient, or of later complication, without mention of misadventure at the time of the procedure; Y92.230 Patient room in hospital as the place of occurrence of the external cause
CPT/HCPCS: 36415; 36430; 36600; 49406; 71045; 71260; 74176; 74177; 76942; 80048; 80053; 80202; 81001; 82150; 82803; 82948; 83605; 83690; 83735; 84100; 84145; 84478; 84484; 85007; 85008; 85018; 85025; 85027; 85379; 85610; 85730; 86885; 86900; 86901; 86920; 87040; 87070; 87075; 87076; 87077; 87081; 87102; 87185; 87186; 87635; 93306; 94002; 94003; 94640; 94667; 94668; 94760; 96365; 96368; 97116; 97161; 97530; 99152; 99153; 99285; A4371; A4421; A4618; A6250; A6253; A6258; A6446; A6449; A7000; C1758; C9113; G0378; J0131; J0360; J1170; J1650; J1940; J2020; J2250; J2405; J2543; J2704; J3010; J3370; J3490; J7030; J7050; J7120; P9016; P9045; P9047; Q9963; Q9967